=== PATIENT | male | born 1990 | race Caucasian/White ===

== ENCOUNTER 2021-08-18 06:49 | Emergency (ER) | payer OTHER ==
[2021-08-18 06:56] VITALS: BP 146/101; RESP 18; TEMP 97.8
[2021-08-18] MEDS ORDERED: IBUPROFEN 800 MG TAB PO STA (07:01)
--- NOTE | 2021-08-18 07:06 | ED ---
General Adult HPI - General Chief complaint: Extremity Injury, Upper Stated complaint: L wrist injury Time Seen by Provider: 08/18/21 07:00 Source: patient, RN notes reviewed, old records reviewed Mode of arrival: ambulatory Limitations: no limitations - History of Present Illness Initial comments: Well-appearing 31-year-old male presents to the emergency room with complaints of left hand pain. Patient states he slipped on ice last night around 9:30 landing on his let hand. He states since the fall has had increasing pain to his hand with movement of his left thumb and fingers. Denies any wrist pain, elbow or arm pain. No loss of consciousness, no other injuries. -: hour(s) (10) Location: left, upper extremity (hand/wrist) Severity scale (1-10): 8 Quality: aching, constant Consistency: constant Improves with: immobilization Worsens with: movement Associated Symptoms: denies other symptoms Treatments Prior to Arrival: none - Related Data Previous Rx's Medication Instructions Recorded Ibuprofen [Motrin] 800 mg PO Q6HR #30 tab 08/18/21 Allergies Allergy/AdvReac Type Severity Reaction Status Date / Time baires Allergy Swelling Verified 08/18/21 06:56 Review of Systems ROS Statement: Those systems with pertinent positive or pertinent negative responses have been documented in the HPI. ROS Other: All systems not noted in ROS Statement are negative. Past Medical History Past Medical History: No Reported History History of Any Multi-Drug Resistant Organisms: None Reported Past Surgical History: No Surgical Hx Reported Past Psychological History: No Psychological Hx Reported Smoking Status: Current every day smoker Past Alcohol Use History: Daily Past Drug Use History: Marijuana General Exam Limitations: no limitations General appearance: alert, in no apparent distress Head exam: Present: atraumatic, normocephalic, normal inspection Eye exam: Present: normal appearance. Absent: scleral icterus, conjunctival injection, periorbital swelling Neck exam: Present: normal inspection, full ROM. Absent: tenderness, meningi smus Respiratory exam: Present: normal lung sounds bilaterally. Absent: wheezes, rales, rhonchi Cardiovascular Exam: Present: regular rate Left Upper Arm exam: Present: full ROM. Absent: tenderness Elbow exam: Present: full ROM. Absent: tenderness Forearm Wrist exam: Present: full ROM. Absent: tenderness Hand Wrist exam: Present: tenderness, abrasion (Patient states abrasions are from his cat). Absent: full ROM, ecchymosis, deformity, crepitus, dislocation, erythema, amputation Neuro motor exam: Present: wrist extension intact Vascular: Present: normal capillary refill, radial pulse. Absent: vascular compromise Back exam: Absent: tenderness, CVA tenderness (R), CVA tenderness (L) Neurological exam: Present: alert, oriented X3, normal gait Psychiatric exam: Present: normal affect, normal mood Skin exam: Present: warm, dry, normal color. Absent: cyanosis, diaphoretic Course Vital Signs 08/18/21 06:53 Temperature 97.8 F Pulse Rate 94 Respiratory 18 Rate Blood Pressure 146/101 O2 Sat by Pulse 98 Oximetry Medical Decision Making - Medical Decision Making 31-year-old male presents ambulatory with steady gait complaining of left hand pain after a slip and fall on ice last night. X-ray of the left hand and wrist show no acute fracture or dislocation. Joint spaces are within normal limits. Patient was given a prescription for Motrin and directed to take the medication every 8 hours for the next 2-3 days for pain and swelling, use ice and elevate at home. He was given a referral to orthopedics and directed to return to the emergency room with a new or concerning symptoms. Case discussed with Dr. Wu Disposition Clinical Impression: Sprain of hand, left Disposition: HOME SELF-CARE Condition: Good Instructions (If sedation given, give patient instructions): Hand Sprain (ED) Additional Instructions: Take Tylenol and/or Motrin as needed for pain for the next 2-3 days. Use ice for any swelling. Follow-up with orthopedics next week. Prescriptions: Ibuprofen [Motrin] 800 mg PO Q6HR #30 tab Is patient prescribed a controlled substance at d/c from ED?: No Referrals: None,Stated [Primary Care Provider] - 1-2 days Earl Mckeon MD [STAFF PHYSICIAN] - 1-2 days Time of Disposition: 07:37
--- NOTE | 2021-08-18 07:34 | XR ---
EXAMINATION TYPE: XR wrist complete LT, XR hand complete LT DATE OF EXAM: 08/18/2021 CLINICAL HISTORY: Fall injury with pain. TECHNIQUE: Frontal, lateral and oblique images of the left hand and wrist are obtained. 4 view scap hoid view is performed. COMPARISON: None FINDINGS: There is no acute fracture/dislocation evident in the left wrist. The joint spaces in the left wrist appear within normal limits. The overlying soft tissue appears unremarkable. Images of the left hand show no acute fracture or dislocation. Joint spaces are preserved. Overlying soft tissues unremarkable. IMPRESSION: There is no acute fracture or dislocation in the left hand or wrist.
[2021-08-18 08:16] VITALS: PULSE 87
== END 2021-08-18 07:55 | disposition home or self-care (01) ==
LOC: EC 06:49
DX: S63.92XA Sprain of unspecified part of left wrist and hand, initial encounter (principal); F12.90 Cannabis use, unspecified, uncomplicated; F17.200 Nicotine dependence, unspecified, uncomplicated; W00.9XXA Unspecified fall due to ice and snow, initial encounter
CPT/HCPCS: 99283

== ENCOUNTER 2021-08-28 14:01 | Inpatient (IN) | payer OTHER ==
[2021-08-28] MEDS ORDERED: SODIUM CHLORIDE 0.9% 1,000 ML IV STA ×2 (15:29)
[2021-08-28] MEDS ORDERED: LORazepam 2 MG/ML INJ IV STA ×2 (15:30→17:52)
[2021-08-28] MEDS ORDERED: cloNIDine HCL 0.1 MG TAB PO STA (15:30)
--- NOTE | 2021-08-28 15:37 | ED ---
Alcohol HPI - General Chief Complaint: Alcohol Stated Complaint: ETOH Time Seen by Provider: 08/28/21 15:17 Source: patient, family, RN notes reviewed Mode of arrival: ambulatory Limitations: no limitations - History of Present Illness Initial Comments: 31-year-old male with a history of alcoholism drinking up to his much as one fifth of alcohol per day quit drinking 2 days ago because he wants to get off of alcohol he started having shakes started hallucinating started thinking people were talking about a minute conspiring against him. He was given a shot of alcohol last night by a friend to help the symptoms but recurred again today. he's had no fevers chills nausea vomiting sweats he was found have a heart rate of over 160 at home. he was brought in by his landlord who did do the evaluation initially no other current complaints of modifying factors. MD Complaint: alcohol intoxication, alcohol withdrawal, alcohol dependence - Related Data Previous Rx's Medication Instructions Recorded Ibuprofen [Motrin] 800 mg PO Q6HR #30 tab 08/18/21 Allergies Allergy/AdvReac Type Severity Reaction Status Date / Time baires Allergy Swelling Verified 08/28/21 14:27 Review of Systems ROS Statement: Those systems with pertinent positive or pertinent negative responses have been documented in the HPI. ROS Other: All systems not noted in ROS Statement are negative. Past Medical History Past Medical History: No Reported History History of Any Multi-Drug Resistant Organisms: None Reported Past Surgical History: No Surgical Hx Reported Past Psychological History: No Psychological Hx Reported Smoking Status: Current every day smoker Past Alcohol Use History: Daily Past Drug Use History: Marijuana General Exam - General Exam Comments Initial Comments: This is a well up well-nourished awake alert anxious appearing male Limitations: no limitations General appearance: alert, anxious Head exam: Present: atraumatic, normocephalic, normal inspection Eye exam: Present: normal appearance, PERRL, EOMI. Absent: scleral icterus, conjunctival injection, periorbital swelling ENT exam: Present: mucous membranes dry Neck exam: Present: normal inspection, full ROM, other (Surgery per his). Absent: tenderness, meningismus, lymphadenopathy Respiratory exam: Present: normal lung sounds bilaterally. Absent: respiratory distress, wheezes, rales, rhonchi, stridor Cardiovascular Exam: Present: normal rhythm, tachycardia, normal heart sounds. Absent: systolic murmur, diastolic murmur, rubs, gallop, clicks GI/Abdominal exam: Present: soft, normal bowel sounds. Absent: distended, tenderness, guarding, rebound, rigid Extremities exam: Present: normal inspection, full ROM, normal capillary refill. Absent: tenderness, pedal edema, joint swelling, calf tenderness Back exam: Present: normal inspection Neurological exam: Present: alert, oriented X3, CN II-XII intact Psychiatric exam: Present: normal affect, anxious, manic, other (The patient does demonstrate some paranoid features) Skin exam: Present: warm, dry, intact, normal color. Absent: rash Course Vital Signs 08/28/21 14:23 Temperature 98.4 F Pulse Rate 123 H Respiratory 18 Rate Blood Pressure 163/89 O2 Sat by Pulse 98 Oximetry Medical Decision Making - Medical Decision Making I did reevaluate patient several occasions he still demonstrating hallucinations and anxiety as well as some shakes noted. He will be admitted I did discuss case with Aster Orozco who is covering for Dr. Goode. - Lab Data Result diagrams: 08/28/21 15:45 08/28/21 15:45 Lab Results 08/28/21 08/28/21 08/28/21 Range/Units 15:45 15:45 15:45 WBC 6.4 (3.8-10.6) k/uL RBC 4.93 (4.30-5.90) m/uL Hgb 17.8 H (13.0-17.5) gm/dL Hct 50.4 (39.0-53.0) % MCV 102.3 H (80.0-100.0) fL MCH 36.1 H (25.0-35.0) pg MCHC 35.3 (31.0-37.0) g/dL RDW 13.1 (11.5-15.5) % Plt Count 61 L (150-450) k/uL MPV 9.3 Neutrophils % 80 % Lymphocytes % 11 % Monocytes % 7 % Eosinophils % 1 % Basophils % 0 % Neutrophils # 5.1 (1.3-7.7) k/uL Lymphocytes # 0.7 L (1.0-4.8) k/uL Monocytes # 0.4 (0-1.0) k/uL Eosinophils # 0.0 (0-0.7) k/uL Basophils # 0.0 (0-0.2) k/uL Macrocytosis Slight Sodium 134 L (137-145) mmol/L Potassium 3.4 L (3.5-5.1) mmol/L Chloride 93 L (98-107) mmol/L Carbon Dioxide 26 (22-30) mmol/L Anion Gap 15 mmol/L BUN 12 (9-20) mg/dL Creatinine 0.72 (0.66-1.25) mg/dL Est GFR (CKD-EPI)AfAm >90 (>60 ml/min/1.73 sqM) Est GFR (CKD-EPI)NonAf >90 (>60 ml/min/1.73 sqM) Glucose 98 (74-99) mg/dL Calcium 9.8 (8.4-10.2) mg/dL Magnesium 0.9 L* (1.6-2.3) mg/dL Total Bilirubin 4.1 H (0.2-1.3) mg/dL AST 255 H (17-59) U/L ALT 164 H (4-49) U/L Alkaline Phosphatase 82 (38-126) U/L Creatine Kinase 358 H (55-170) U/L Troponin I <0.012 (0.000-0.034) ng/mL Total Protein 8.9 H (6.3-8.2) g/dL Albumin 5.3 H (3.5-5.0) g/dL Lipase 68 (23-300) U/L Serum Alcohol <10 mg/dL - EKG Data -: EKG Interpreted by Me EKG shows normal: sinus rhythm EKG Comments: Sinus rhythm 89. Interval 144 QRS duration 110 daily since QTC 333/379 including right bundle-branch block nonspecific anterior configuration - Radiology Data Radiology results: report reviewed (Imaging reviewed no acute findings.), image reviewed Disposition Clinical Impression: Alcohol withdrawal delirium, Alcohol withdrawal syndrome, Hypomagnesemia, Hypokalemia Disposition: ADMITTED IP TO THIS [facility] Condition: Fair Referrals: None,Stated [Primary Care Provider] - 1-2 days
[2021-08-28 16:13] LABS: Basophils % (A) 0 %; Eosinophils % (A) 1 %; HCT 50.4 % (39.0-53.0); HGB 17.8 gm/dL (13.0-17.5); Lymphocytes # (A) 0.7 k/uL (1.0-4.8); Lymphocytes % (A) 11 %; MCH 36.1 pg (25.0-35.0); MCHC 35.3 g/dL (31.0-37.0); MCV 102.3 fL (80.0-100.0); Macrocytosis Slight; Mean Platelet Volume 9.3; Monocytes # (A) 0.4 k/uL (0-1.0); Monocytes % (A) 7 %; Neutrophils # (A) 5.1 k/uL (1.3-7.7); Neutrophils % (A) 80 %; RBC 4.93 m/uL (4.30-5.90); RDW 13.1 % (11.5-15.5); WBC 6.4 k/uL (3.8-10.6)
[2021-08-28 16:22] LABS: ALT 164 U/L (4-49); AST 255 U/L (17-59); African American GFR (CKD) >90 (>60 ml/min/1.73 sqM); Albumin 5.3 g/dL (3.5-5.0); Alcohol <10 mg/dL; Alkaline Phosphatase 82 U/L (38-126); Anion Gap 15 mmol/L; Blood Urea Nitrogen 12 mg/dL (9-20); Calcium 9.8 mg/dL (8.4-10.2); Carbon Dioxide 26 mmol/L (22-30); Chloride 93 mmol/L (98-107); Creatine Kinase 358 U/L (55-170); Glucose 98 mg/dL (74-99); Lipase 68 U/L (23-300); Non-African American GFR(CKD) >90 (>60 ml/min/1.73 sqM); Potassium 3.4 mmol/L (3.5-5.1); Sodium 134 mmol/L (137-145); Total Bilirubin 4.1 mg/dL (0.2-1.3); Total Protein 8.9 g/dL (6.3-8.2)
[2021-08-28 16:37] LABS: Magnesium 0.9 mg/dL (1.6-2.3)
[2021-08-28 16:42] LABS: Platelet Count 61 k/uL (150-450)
--- NOTE | 2021-08-28 17:26 | XR ---
EXAMINATION TYPE: XR chest 2V DATE OF EXAM: 08/28/2021 COMPARISON: 02/27/2016 HISTORY: 31 years Male. STUDY INDICATION GIVEN: Tachycardia . TECHNIQUE: Frontal and lateral chest radiographs. IMPRESSION: No focal airspace disease, pneumothorax or pleural effusion. There is a retrocardiac lucency which was seen on the prior study which could be artifactual versus a gastroesophageal hiatal hernia. The cardiomediastinal silhouette is normal in appearance. No acute osseous abnormalities seen.
[2021-08-28] MEDS ORDERED: diphenhydrAMINE 50 MG/ML 1 ML VIAL IVP STA (17:55)
[2021-08-28] MEDS ORDERED: THIAMINE 100 MG/ML 2 ML VIAL IM STA (18:02)
[2021-08-28] MEDS ORDERED: LORazepam 2 MG/ML INJ IV PRN (18:02)
[2021-08-28] MEDS ORDERED: NALOXONE 0.4 MG/ML 1 ML VIAL IV PRN (18:02)
[2021-08-28] MEDS ORDERED: POTASSIUM CHLORIDE ER 20 MEQ TAB.ER PO STA (18:04)
[2021-08-28] MEDS: MAGNESIUM SULFATE-D5W PMX 1 GM in DEXTROSE/WATER 1 100ML.BAG IVPB SCH ×2 (19:25→23:58)
[2021-08-28] MEDS: LORazepam 2 MG/ML INJ IV PRN ×2 (19:28→21:05)
[2021-08-28] MEDS: THIAMINE 100 MG TAB PO SCH ×2 (19:33→19:34)
[2021-08-28] MEDS ORDERED: HALOPERIDOL LACTATE 5 MG/ML 1 ML VIAL IM PRN (21:43)
[2021-08-28] MEDS ORDERED: LORazepam 2 MG/ML INJ IM STA (22:17)
[2021-08-28] MEDS ORDERED: LORazepam 2 MG/ML INJ ONE (22:19)
[2021-08-28] MEDS: DEXMEDETOMIDINE/0.9% NACL(PMX) 400 MCG in EMPTY BAG 1 BAG IV SCH (23:30)
[2021-08-29] MEDS: LORazepam 2 MG/ML INJ IV PRN ×5 (00:23→14:21)
--- NOTE | 2021-08-29 03:07 | P.EN ---
A- team: Indication: Delirium tremens Arrived on Scene to find: Severely agitated, in 4 point restraints Vital signs reviewed Patient seen and examined at bedside. The patient was very agitated with CIWA > 30. He was not directable. General: Very agitated, in 4 point restraints, [appears at stated age] Derm: [warm], [dry] Head: [atraumatic], [normocephalic], [symmetric] Eyes: [EOMI], [no lid lag], [anicteric sclera] Mouth: [no lip lesion], [mucus membranes dry] Cardiovascular: Unable to assess, patient combative Lungs: Unable to assess, patient combative Abdominal: Unable to assess Ext: Moving all extremities Neuro: [no gross focal neuro deficits] Psych: Tremulous and agitated, speaking incoherently Assessment: Delirium tremens Plan: Ativan 4 mg IM administered that much relief The case was discussed with head piece assembler who accepted the patient for Ativan infusion Continue with delirium tremens management as per the primary team Disposition: Transferred to ICU Notified: Primary team notified by RN A Total of 35 minutes of critical care time was spent on the complex care of this patient.
[2021-08-29] MEDS: DEXMEDETOMIDINE/0.9% NACL(PMX) 400 MCG in EMPTY BAG 1 BAG IV SCH ×4 (04:21→19:35)
[2021-08-29 05:43] LABS: Basophils % (A) 0 %; Eosinophils # (A) 0.1 k/uL (0-0.7); Eosinophils % (A) 1 %; HCT 46.7 % (39.0-53.0); HGB 15.7 gm/dL (13.0-17.5); Lymphocytes # (A) 0.8 k/uL (1.0-4.8); Lymphocytes % (A) 10 %; MCH 35.8 pg (25.0-35.0); MCHC 33.6 g/dL (31.0-37.0); MCV 106.5 fL (80.0-100.0); Macrocytosis Moderate; Mean Platelet Volume 10.2; Monocytes # (A) 0.4 k/uL (0-1.0); Monocytes % (A) 5 %; Neutrophils % (A) 82 %; RBC 4.39 m/uL (4.30-5.90); RDW 13.2 % (11.5-15.5); WBC 7.3 k/uL (3.8-10.6)
[2021-08-29 05:56] LABS: Platelet Count 50 k/uL (150-450)
[2021-08-29 06:07] LABS: African American GFR (CKD) >90 (>60 ml/min/1.73 sqM); Anion Gap 17 mmol/L; Blood Urea Nitrogen 15 mg/dL (9-20); Calcium 8.5 mg/dL (8.4-10.2); Carbon Dioxide 17 mmol/L (22-30); Chloride 100 mmol/L (98-107); Glucose 77 mg/dL (74-99); Non-African American GFR(CKD) >90 (>60 ml/min/1.73 sqM); Potassium 3.7 mmol/L (3.5-5.1); Sodium 134 mmol/L (137-145)
[2021-08-29] MEDS ORDERED: Potassium Replacement Protocol 1 EACH MISC MISCELLANE PRN (06:29)
[2021-08-29] MEDS: POTASSIUM CHLORIDE 10 MEQ in WATER FOR INJECTION 1 100ML.BAG IVPB SCH ×2 (06:46→08:04)
[2021-08-29] MEDS: THIAMINE 100 MG TAB PO SCH ×2 (08:05→16:40)
--- NOTE | 2021-08-29 09:05 | P.CNPUL ---
History of Present Illness Consult date: 08/29/21 Chief complaint: Delerium History of present illness: 31-year-old alcoholic male patient, drinks a fifth of alcohol on a daily basis and he quit drinking approximately 2 days ago prior to him coming into the hospital. The patient developed shakes, agitation, confusion, hallucination and he hasn't delusions where he thought the people around him were conspiring against him. He was given a shot of alcohol by a friend to help him with the symptoms but the symptoms recurred. Ultimately he came into the emergency department. No fever. No chills. No sweats. No nausea. No vomiting. He was brought into the emergency by his landlord. At the time of his arrival, he was hemodynamically stable, afebrile, he was in sinus tachycardia, slightly hypertensive, white count of 6.4 with a hemoglobin of 17.8 and the patient had a platelet count of 61, sodium is at 134, BUN is at 12 with a creatinine of 0.7 and a potassium level of 3.4 and a glucose of 98. LFTs were abnormal consistent with acute alcoholic hepatitis with an AST of 255, ALT of 164, bilirubin of 4.1, his CPK was at 358 slightly elevated with a negative troponin. His alcohol level was less than 10. Amylase and lipase were within normal limits. His magnesium level was low at 0.9 to the placements currently up to 2. Note that overnight, the patient became severely agitated. He was given Ativan and he was very difficult to control. Based on that, the patient got chest to the ICU where he was started on Precedex drip. Morning, he is confused, no agitation. He is still on Precedex at 1 mcg/kg per minute. Overall, he received a total of 5 mg of Ativan and 2 mg of Haldol and this was documented in the medical record. Review of Systems Constitutional: Reports as per HPI, Reports daytime sleepiness, Reports fatigue, Reports lethargy, Reports poor appetite, Reports weakness Eyes: denies as per HPI, denies blurred vision, denies bulging eye, denies decreased vision, denies diplopia, denies discharge, denies dry eye, denies irritation, denies itching, denies pain, denies photophobia, denies loss of peripheral vision, denies loss of vision, denies tunnel vision/blind spots Ears: deny: decreased hearing, ear discharge, earache, tinnitus Ears, nose, mouth and throat: Reports as per HPI Breasts: absent: as per HPI, gynecomastia Cardiovascular: Reports as per HPI Respiratory: Reports as per HPI Gastrointestinal: Reports as per HPI Genitourinary: Reports as per HPI Musculoskeletal: Reports as per HPI Musculoskeletal: absent: ankle pain, ankle stiffness, ankle swelling, as per HPI, elbow pain, elbow stiffness, elbow swelling, foot pain, foot stiffness, foot swelling, hand pain, hand stiffness, hand swelling, hip pain, hip stiffness, hip swelling, knee pain, knee stiffness, knee swelling, shoulder pain, shoulder stiffness, shoulder swelling, wrist pain, wrist stiffness, wrist swelling Integumentary: Reports as per HPI Neurological: Reports confusion Psychiatric: Reports as per HPI Endocrine: Reports as per HPI Hematologic/Lymphatic: Reports as per HPI Allergic/Immunologic: Reports as per HPI Past Medical History Past Medical History: No Reported History History of Any Multi-Drug Resistant Organisms: None Reported Past Surgical History: No Surgical Hx Reported Past Psychological History: No Psychological Hx Reported Smoking Status: Unknown if ever smoked Past Alcohol Use History: Daily Past Drug Use History: Marijuana Medications and Allergies Home Medications Medication Instructions Recorded Confirmed Type Ibuprofen [Motrin] 800 mg PO Q6HR PRN 08/28/21 08/28/21 History Allergies Allergy/AdvReac Type Severity Reaction Status Date / Time baires Allergy Swelling Verified 08/28/21 18:19 Physical Exam Vitals: Vital Signs Temp Pulse Pulse Pulse Pulse Resp BP 08/29/21 08:30 74 17 111/84 08/29/21 08:00 98 F 75 14 114/78 08/29/21 07:30 76 16 101/74 08/29/21 07:00 79 15 117/77 08/29/21 06:30 80 15 111/75 08/29/21 06:00 81 16 117/73 08/29/21 05:30 82 15 107/73 08/29/21 05:00 83 16 111/70 08/29/21 04:30 97.8 F 85 84 87 18 113/72 08/29/21 04:00 98.0 F 85 18 116/74 08/29/21 03:30 86 19 114/73 08/29/21 03:00 89 21 110/77 08/29/21 02:30 90 19 125/76 08/29/21 02:00 95 21 111/66 08/29/21 01:30 98.2 F 97 89 91 23 123/80 08/29/21 01:00 105 H 28 H 130/81 08/29/21 00:30 116 H 49 H 125/82 08/29/21 00:16 114 H 28 H 131/87 08/29/21 00:15 114 H 28 H 124/87 08/29/21 00:00 120 H 29 H 123/74 08/28/21 23:45 130 H 32 H 123/74 08/28/21 23:30 135 H 59 H 123/74 08/28/21 23:01 08/28/21 20:35 98.8 F 104 H 18 08/28/21 18:32 105 H 20 141/89 08/28/21 14:23 98.4 F 123 H 18 163/89 BP Pulse Ox 08/29/21 08:30 99 08/29/21 08:00 98 08/29/21 07:30 98 08/29/21 07:00 98 08/29/21 06:30 98 08/29/21 06:00 97 08/29/21 05:30 98 08/29/21 05:00 97 08/29/21 04:30 111/70 97 08/29/21 04:00 97 08/29/21 03:30 97 08/29/21 03:00 97 08/29/21 02:30 97 08/29/21 02:00 97 08/29/21 01:30 128/65 96 08/29/21 01:00 98 08/29/21 00:30 08/29/21 00:16 08/29/21 00:15 08/29/21 00:00 08/28/21 23:45 96 08/28/21 23:30 93 L 08/28/21 23:01 94 L 08/28/21 20:35 137/81 97 08/28/21 18:32 97 08/28/21 14:23 98 Intake and Output 08/28/21 08/29/21 08/29/21 22:59 06:59 14:59 Intake Total 440.000 130 Balance 440.000 130 Intake: IV 220 30 Sodium Chloride 0.9% 1, 220 30 000 ml @ 130 mls/hr IV . Q7H42M [facility] Rx#:[id number] Intake, IV Titration 220.000 100 Amount Dexmedetomidine/0.9% NaCl 100.000 100 (Pmx) 400 mcg In Empty Bag 1 bag @ 0.2 MCG/KG/HR 5.67 mls/hr IV .[id number] [facility] Rx#:[id number] Sodium Chloride 0.9% 1, 120 000 ml @ 130 mls/hr IV . Q7H42M [facility] Rx#:[id number] Other: Weight 113.398 kg The patient appeared well nourished and normally developed. Vital signs as docum ented. Head exam is unremarkable. No scleral icterus or corneal arcus noted. Neck is without jugular venous distension, thyromegaly, or carotid bruits. Carotid upstrokes are brisk bilaterally. Lungs are clear to auscultation and percussion. Cardiac exam reveals the PMI to be normally sized and situated. Rhythm is regular. First and second heart sounds normal. No murmurs, rubs or gallops. Abdominal exam reveals normal bowel sounds, no masses, no organomegaly and no aortic enlargement. Extremities are nonedematous and both femoral and pedal pulses are normal. neurologically, the patient has no palpable neurological deficit. The patient still has ongoing shakes and confusion and he is alert and oriented 1. Nevertheless, no agitation. Pupils are equal reactive to light. No focal neurological deficits.Examination of the skin revealed no evidence of significant rashes, suspicious appearing nevi or other concerning lesions. Results - Laboratory Findings CBC and BMP: 08/29/21 04:48 08/29/21 04:48 Abnormal lab findings: Abnormal Labs 08/28/21 08/28/21 08/29/21 15:45 15:45 04:48 Hgb 17.8 H MCV 102.3 H 106.5 H MCH 36.1 H 35.8 H Plt Count 61 L 50 L Lymphocytes # 0.7 L 0.8 L Sodium 134 L Potassium 3.4 L Chloride 93 L Carbon Dioxide Magnesium 0.9 L* Total Bilirubin 4.1 H AST 255 H ALT 164 H Creatine Kinase 358 H Total Protein 8.9 H Albumin 5.3 H 08/29/21 04:48 Hgb MCV MCH Plt Count Lymphocytes # Sodium 134 L Potassium Chloride Carbon Dioxide 17 L Magnesium Total Bilirubin AST ALT Creatine Kinase Total Protein Albumin - Diagnostic Findings Chest x-ray: image reviewed Assessment and Plan Plan: 1. Delirium Tremors secondary to alcohol withdrawal with significant agitation currently on Precedex drip with adequate control of symptoms of delirium tremens 2 confusion/agitation/hallucinations/delusions all secondary to above 3 alcoholism 4 electrolytes disturbance secondary to alcoholism including hypo-magnesium and hypokalemia 5 acute alcoholic hepatitis 6 chronic thrombocytopenia related to a dose of 7 hyperbilirubinemia secondary to above Plan Keep the patient intensive care unit Aspiration precautions Keep the patient on Precedex drip and titrate the dose based on his symptoms of delirium tremens This morning the patient is more arousable and is communicating. He is confused and lethargic. No focal neurological deficits. Replace electrolytes Monitor LFTs History was a normal saline at the rate of 100 mL an hour in addition to 20 mg of potassium chloride replacement along with multivitamins Replace the patient with thiamine and folate Lovenox 40 mg subcu for DVT prophylaxis We'll continue to follow
[2021-08-29] MEDS ORDERED: SODIUM CHLORIDE 0.9% 1,000 ML with POTASSIUM CHLORIDE 20 MEQ IV SCH ×2 (09:30)
--- NOTE | 2021-08-29 13:02 | P.HPIM ---
History of Present Illness H&P Date: 08/29/21 Chief Complaint: Hallucinations Patient is a 31-year-old male with a known history of alcohol abuse and marijuana use presents to ER due to alcohol intoxication. Patient does drink 1/5 of alcohol per day and quit 2 days ago since he decided to get off of alcohol. He started having shakes and hallucinating and thinking that people are talking about him and conspiring against him. He was brought in by his landlord to the ER. Otherwise patient has not had any fever or chills. No nausea or vomiting. Patient was tachycardic with heart rate 123 and up to 135 on admission. Blood pressure is also elevated 163/89 and pulse ox 98% on room air. Chest x-ray showed there is no focal airspace disease pneumothorax or pleural effusion. EKG showed sinus rhythm with marked sinus arrhythmia. Patient has been contacted monitor for alcohol withdrawal symptoms and delirium. Laboratory showed sodium 134 potassium 3.4 chloride 93 BUN: Creatinine 0.72 magnesium 0.9 total bilirubin level is 4.1 AST 245 ALT 164 and alk phos 82 and a CK 354 8 and lipase level is 68 and serum alcohol level is less than 10. Overnight patient became very agitated requiring restraint x4 and was transferred to MICU due to delirium tremors. Patient was given Ativan and Haldol. Patient was started on Precedex drip in the MICU. Review of Systems Review of systems could not be obtained from the patient. Past Medical History Past Medical History: No Reported History History of Any Multi-Drug Resistant Organisms: None Reported Past Surgical History: No Surgical Hx Reported Past Psychological History: No Psychological Hx Reported Smoking Status: Unknown if ever smoked Past Alcohol Use History: Daily Past Drug Use History: Marijuana - Past Family History Mother History Unknown: Yes Father History Unknown: Yes Medications and Allergies Home Medications Medication Instructions Recorded Confirmed Type Ibuprofen [Motrin] 800 mg PO Q6HR PRN 08/28/21 08/28/21 History Allergies Allergy/AdvReac Type Severity Reaction Status Date / Time baires Allergy Swelling Verified 08/28/21 18:19 Physical Exam Vitals: Vital Signs Temp Pulse Pulse Pulse Pulse Resp BP 08/29/21 12:00 98 F 78 15 108/86 08/29/21 11:30 80 16 117/83 08/29/21 11:00 77 15 119/84 08/29/21 10:30 75 16 122/96 08/29/21 10:00 78 17 114/94 08/29/21 09:30 75 16 124/92 08/29/21 09:00 73 20 123/89 08/29/21 08:30 74 17 111/84 08/29/21 08:00 98 F 75 14 114/78 08/29/21 07:30 76 16 101/74 08/29/21 07:00 79 15 117/77 08/29/21 06:30 80 15 111/75 08/29/21 06:00 81 16 117/73 08/29/21 05:30 82 15 107/73 08/29/21 05:00 83 16 111/70 08/29/21 04:30 97.8 F 85 84 87 18 113/72 08/29/21 04:00 98.0 F 85 18 116/74 08/29/21 03:30 86 19 114/73 08/29/21 03:00 89 21 110/77 08/29/21 02:30 90 19 125/76 08/29/21 02:00 95 21 111/66 08/29/21 01:30 98.2 F 97 89 91 23 123/80 08/29/21 01:00 105 H 28 H 130/81 08/29/21 00:30 116 H 49 H 125/82 08/29/21 00:16 114 H 28 H 131/87 08/29/21 00:15 114 H 28 H 124/87 08/29/21 00:00 120 H 29 H 123/74 08/28/21 23:45 130 H 32 H 123/74 08/28/21 23:30 135 H 59 H 123/74 08/28/21 23:01 08/28/21 20:35 98.8 F 104 H 18 08/28/21 18:32 105 H 20 141/89 08/28/21 14:23 98.4 F 123 H 18 163/89 BP Pulse Ox 08/29/21 12:00 98 08/29/21 11:30 98 08/29/21 11:00 97 08/29/21 10:30 97 08/29/21 10:00 98 08/29/21 09:30 98 08/29/21 09:00 98 08/29/21 08:30 99 08/29/21 08:00 98 08/29/21 07:30 98 08/29/21 07:00 98 08/29/21 06:30 98 08/29/21 06:00 97 08/29/21 05:30 98 08/29/21 05:00 97 08/29/21 04:30 111/70 97 08/29/21 04:00 97 08/29/21 03:30 97 08/29/21 03:00 97 08/29/21 02:30 97 08/29/21 02:00 97 08/29/21 01:30 128/65 96 08/29/21 01:00 98 08/29/21 00:30 08/29/21 00:16 08/29/21 00:15 08/29/21 00:00 08/28/21 23:45 96 08/28/21 23:30 93 L 08/28/21 23:01 94 L 08/28/21 20:35 137/81 97 08/28/21 18:32 97 08/28/21 14:23 98 Intake and Output 08/28/21 08/29/21 08/29/21 22:59 06:59 14:59 Intake Total 440.000 350 Balance 440.000 350 Intake: IV 220 150 Sodium Chloride 0.9% 1, 220 150 000 ml @ 130 mls/hr IV . Q7H42M [facility] Rx#:[id number] Intake, IV Titration 220.000 200 Amount Dexmedetomidine/0.9% NaCl 100.000 200 (Pmx) 400 mcg In Empty Bag 1 bag @ 0.2 MCG/KG/HR 5.67 mls/hr IV .[id number] [facility] Rx#:[id number] Sodium Chloride 0.9% 1, 120 000 ml @ 130 mls/hr IV . Q7H42M [facility] Rx#:[id number] Other: # Voids 1 Weight 113.398 kg PHYSICAL EXAMINATION: Patient is lying in the bed . Currently sedated. HEENT: Normocephalic. Neck is supple. Pupils reactive. Nostrils clear. Oral cavity is moist. Neck reveals no JVD, carotid bruits, or thyromegaly. CHEST EXAMINATION: Trachea is central. Symmetrical expansion. Lung rodriguez clear to auscultation and percussion. CARDIAC: Normal S1, S2 with no gallops. No murmurs ABDOMEN: Soft. Bowel sounds normal. No organomegaly. No abdominal bruits. Extremities: reveal no edema. No clubbing or cyanosis Neurologically sedated. No gross focal deficits noted Skin: No rash or skin lesions. Psychiatric: Could not be assessed at this time. Musculoskeletal: No joint swelling or deformity. Results CBC & Chem 7: 08/29/21 04:48 08/29/21 04:48 Labs: Abnormal Lab Results - Last 24 Hours (Table) 08/28/21 08/28/21 08/29/21 Range/Units 15:45 15:45 04:48 Hgb 17.8 H (13.0-17.5) gm/dL MCV 102.3 H 106.5 H (80.0-100.0) fL MCH 36.1 H 35.8 H (25.0-35.0) pg Plt Count 61 L 50 L (150-450) k/uL Lymphocytes # 0.7 L 0.8 L (1.0-4.8) k/uL Sodium 134 L (137-145) mmol/L Potassium 3.4 L (3.5-5.1) mmol/L Chloride 93 L (98-107) mmol/L Carbon Dioxide (22-30) mmol/L Magnesium 0.9 L* (1.6-2.3) mg/dL Total Bilirubin 4.1 H (0.2-1.3) mg/dL AST 255 H (17-59) U/L ALT 164 H (4-49) U/L Creatine Kinase 358 H (55-170) U/L Total Protein 8.9 H (6.3-8.2) g/dL Albumin 5.3 H (3.5-5.0) g/dL 08/29/21 Range/Units 04:48 Hgb (13.0-17.5) gm/dL MCV (80.0-100.0) fL MCH (25.0-35.0) pg Plt Count (150-450) k/uL Lymphocytes # (1.0-4.8) k/uL Sodium 134 L (137-145) mmol/L Potassium (3.5-5.1) mmol/L Chloride (98-107) mmol/L Carbon Dioxide 17 L (22-30) mmol/L Magnesium (1.6-2.3) mg/dL Total Bilirubin (0.2-1.3) mg/dL AST (17-59) U/L ALT (4-49) U/L Creatine Kinase (55-170) U/L Total Protein (6.3-8.2) g/dL Albumin (3.5-5.0) g/dL Thrombosis Risk Factor Assmnt - DVT/VTE Prophylaxis DVT/VTE Prophylaxis: Pharmacologic Prophylaxis ordered Assessment and Plan Assessment: Acute delirium tremens. Patient was transferred to MICU and started on Precedex drip. Severe alcohol abuse was one-point daily. Quit 2 days ago. Severe hypokalemia and hypomagnesemia. Replaced. Alcoholic hepatitis with elevated LFTs Hyperbilirubinemia secondary to alcoholic hepatitis Chronic thrombocytopenia and macrocytosis related to alcohol abuse Hypovolemic hyponatremia Mild rhabdomyolysis CK level 358 DVT prophylaxis Plan: Patient will be continued on IV fluids, thiamine and multivitamins and continue with Ativan as needed and CIWA protocol. Patient was started on Precedex drip and continue to monitor the patient in the MICU. Critical care team is on board. Follow-up electrolytes and repeat CBC and CMP tomorrow. Time with Patient: Greater than 30
[2021-08-30] MEDS: DEXMEDETOMIDINE/0.9% NACL(PMX) 400 MCG in EMPTY BAG 1 BAG IV SCH ×2 (01:35→07:59)
[2021-08-30 07:31] LABS: Basophils # (A) 0.1 k/uL (0-0.2); Basophils % (A) 1 %; Eosinophils # (A) 0.2 k/uL (0-0.7); Eosinophils % (A) 2 %; HCT 48.4 % (39.0-53.0); Lymphocytes # (A) 1.1 k/uL (1.0-4.8); Lymphocytes % (A) 11 %; MCH 35.9 pg (25.0-35.0); MCHC 33.2 g/dL (31.0-37.0); MCV 108.4 fL (80.0-100.0); Macrocytosis Moderate; Mean Platelet Volume 10.3; Monocytes # (A) 0.5 k/uL (0-1.0); Monocytes % (A) 5 %; Neutrophils % (A) 80 %; RBC 4.46 m/uL (4.30-5.90); RDW 12.4 % (11.5-15.5)
[2021-08-30 07:34] LABS: Platelet Count 54 k/uL (150-450)
[2021-08-30 07:45] LABS: ALT 123 U/L (4-49); AST 314 U/L (17-59); African American GFR (CKD) >90 (>60 ml/min/1.73 sqM); Albumin 3.8 g/dL (3.5-5.0); Alkaline Phosphatase 65 U/L (38-126); Anion Gap 9 mmol/L; Blood Urea Nitrogen 12 mg/dL (9-20); Calcium 8.3 mg/dL (8.4-10.2); Carbon Dioxide 14 mmol/L (22-30); Chloride 108 mmol/L (98-107); Glucose 85 mg/dL (74-99); Non-African American GFR(CKD) >90 (>60 ml/min/1.73 sqM); Sodium 131 mmol/L (137-145); Total Bilirubin 2.6 mg/dL (0.2-1.3); Total Protein 6.9 g/dL (6.3-8.2)
[2021-08-30 08:18] LABS: Potassium 4.6 mmol/L (3.5-5.1)
[2021-08-30] MEDS ORDERED: ENOXAPARIN 40 MG/0.4 ML SYRINGE SQ SCH (09:00)
[2021-08-30] MEDS ORDERED: FOLIC ACID 1 MG TAB PO SCH (09:00)
[2021-08-30] MEDS ORDERED: SODIUM BICARB 8.4% 50 ML SYR (1 MEQ/ML) IV STA (09:24)
[2021-08-30] MEDS ORDERED: DEXTROSE 5% IN WATER 1,000 ML IV SCH (09:30)
[2021-08-30] MEDS: THIAMINE 100 MG TAB PO SCH ×2 (09:45→17:45)
[2021-08-30] MEDS ORDERED: DEXTROSE 5% IN WATER 1,000 ML with SODIUM BICARB (1 MEQ/ML) 150 ML IV SCH (10:53)
[2021-08-30 12:08] VITALS: TEMP 98
--- NOTE | 2021-08-30 13:11 | P.PN ---
Subjective Progress Note Date: 08/30/21 31-year-old alcoholic male patient, drinks a fifth of alcohol on a daily basis and he quit drinking approximately 2 days ago prior to him coming into the hospital. The patient developed shakes, agitation, confusion, hallucination and he hasn't delusions where he thought the people around him were conspiring against him. He was given a shot of alcohol by a friend to help him with the symptoms but the symptoms recurred. Ultimately he came into the emergency department. No fever. No chills. No sweats. No nausea. No vomiting. He was brought into the emergency by his landlord. At the time of his arrival, he was hemodynamically stable, afebrile, he was in sinus tachycardia, slightly hypertensive, white count of 6.4 with a hemoglobin of 17.8 and the patient had a platelet count of 61, sodium is at 134, BUN is at 12 with a creatinine of 0.7 and a potassium level of 3.4 and a glucose of 98. LFTs were abnormal consistent with acute alcoholic hepatitis with an AST of 255, ALT of 164, bilirubin of 4.1, his CPK was at 358 slightly elevated with a negative troponin. His alcohol level was less than 10. Amylase and lipase were within normal limits. His magnesium level was low at 0.9 to the placements currently up to 2. Note that overnight, the patient became severely agitated. He was given Ativan and he was very difficult to control. Based on that, the patient got chest to the ICU where he was started on Precedex drip. Morning, he is confused, no agitation. He is still on Precedex at 1 mcg/kg per minute. Overall, he received a total of 5 mg of Ativan and 2 mg of Haldol and this was documented in the medical record. On today's evaluation of 08/22/2021, the patient is doing extremely well. No specific complaints. No confusion. No tremors. No agitation. No restlessn ess. No seizure activity. He is able to tolerate his diet and the patient for breakfast this morning. He is still on Precedex which will be gradually weaned off. Precedex is running at 0.8 mcg/kg per minute. His sodium level is at 131. BNP is at 12 with a creatinine of 0.6. The patient's serum bicarbonate 14 and the bicarb deficit will be also replaced. Potassium is at 4.6. White seconds a, him a 16 and a platelet count of 54. No other significant events overnight otherwise. The patient did not require any Ativan or Haldol since his arrival to the intensive care units. Objective - Vital Signs Vital signs: Vital Signs Temp 98 F 08/30/21 12:00 Pulse 75 08/30/21 12:00 Resp 25 H 08/30/21 12:00 BP 106/73 08/30/21 12:00 Pulse Ox 97 08/30/21 12:00 Intake & Output 08/29/21 08/30/21 08/30/21 18:59 06:59 18:59 Intake Total 1050 1910 1852.086 Output Total 600 665 550 Balance 450 1245 1302.086 Intake: IV 750 1100 550 0.9% NaCl with KCl 20 Meq 700 100 /l 1,000 ml @ 100 mls/hr IV .BY DURATION [facility] Rx#: [id number] Dextrose 5% in Water 1, 150 000 ml @ 75 mls/hr IV . [id number] [facility] with Sodium Bicarb (1 Meq/ml) 150 ml Rx#:[id number] Mvi, Adult No.4 with Vit 600 400 K 10 ml Thiamine 100 mg Folic Acid 1 mg In 0.9% NaCl with KCl 20 Meq/l 1, 000 ml @ 100 mls/hr IV . BY DURATION [facility] Rx#: [id number] NACL with 20KCL 300 Sodium Chloride 0.9% 1, 150 000 ml @ 130 mls/hr IV . Q7H42M [facility] Rx#:[id number] Intake, IV Titration 530 510 7268.086 Amount 0.9% NaCl with KCl 20 Meq 940 /l 1,000 ml @ 100 mls/hr IV .BY DURATION [facility] Rx#: [id number] Dexmedetomidine/0.9% NaCl 300 200 62.086 (Pmx) 400 mcg In Empty Bag 1 bag @ 0.2 MCG/KG/HR 5.67 mls/hr IV .[id number] [facility] Rx#:[id number] Sodium Chloride 0.9% 1, 130 000 ml @ 130 mls/hr IV . Q7H42M [facility] Rx#:[id number] Oral 480 300 Output: Urine 600 665 550 Other: Voiding Method Urinal Urinal # Voids 1 1 # Bowel Movements 1 - Exam The patient appeared well nourished and normally developed. Vital signs as documented. Head exam is unremarkable. No scleral icterus or corneal arcus noted. Neck is without jugular venous distension, thyromegaly, or carotid bruits. Carotid upstrokes are brisk bilaterally. Lungs are clear to auscultation and percussion. Cardiac exam reveals the PMI to be normally sized and situated. Rhythm is regular. First and second heart sounds normal. No murmurs, rubs or gallops. Abdominal exam reveals normal bowel sounds, no masses, no organomegaly and no aortic enlargement. Extremities are nonedematous and both femoral and pedal pulses are normal. neurologically, the patient has no palpable neur ological deficit. The patient still has ongoing shakes and confusion and he is alert and oriented 1. Nevertheless, no agitation. Pupils are equal reactive to light. No focal neurological deficits.Examination of the skin revealed no evidence of significant rashes, suspicious appearing nevi or other concerning lesions. - Labs CBC & Chem 7: 08/30/21 06:47 08/30/21 06:47 Labs: Abnormal Lab Results - Last 24 Hours (Table) 08/30/21 08/30/21 Range/Units 06:47 06:47 MCV 108.4 H (80.0-100.0) fL MCH 35.9 H (25.0-35.0) pg Plt Count 54 L (150-450) k/uL Neutrophils # 8.0 H (1.3-7.7) k/uL Sodium 131 L (137-145) mmol/L Chloride 108 H (98-107) mmol/L Carbon Dioxide 14 L (22-30) mmol/L Creatinine 0.60 L (0.66-1.25) mg/dL Calcium 8.3 L (8.4-10.2) mg/dL Total Bilirubin 2.6 H (0.2-1.3) mg/dL AST 314 H (17-59) U/L ALT 123 H (4-49) U/L Assessment and Plan Plan: 1. Delirium Tremors secondary to alcohol withdrawal with significant agitation currently on Precedex drip with adequate control of symptoms of delirium tremens, clinically stable. No confusion. No agitation. We'll gradually wean off the Precedex. 2 confusion/agitation/hallucinations/delusions all secondary to above, improved 3 alcoholism 4 electrolytes disturbance secondary to alcoholism including hypo-magnesium and hypokalemia 5 acute alcoholic hepatitis 6 chronic thrombocytopenia related to chronic liver disease in the patient's platelet counts is stable for now 7 hyperbilirubinemia secondary to above 8 non-anion gap metabolic acidosis Plan Keep the patient intensive care unit Wean off Precedex Monitor electrolytes Replace the bicarb deficit and the patient was started on a bicarb infusion Monitor LFTs Replace the patient with thiamine and folate Lovenox 40 mg subcu for DVT prophylaxis We'll continue to follow
[2021-08-30 18:05] VITALS: BP 123/74; PULSE 101; RESP 18
--- NOTE | 2021-08-30 22:19 | P.PN ---
Subjective Progress Note Date: 08/30/21 Patient is a 31-year-old male with a known history of alcohol abuse and marijuana use presents to ER due to alcohol intoxication. Patient does drink 1/5 of alcohol per day and quit 2 days ago since he decided to get off of alcohol. He started having shakes and hallucinating and thinking that people are talking about him and conspiring against him. He was brought in by his landlord to the ER. Otherwise patient has not had any fever or chills. No nausea or vomiting. Patient was tachycardic with heart rate 123 and up to 135 on admission. Blood pressure is also elevated 163/89 and pulse ox 98% on room air. Chest x-ray showed there is no focal airspace disease pneumothorax or pleural effusion. EKG showed sinus rhythm with marked sinus arrhythmia. Patient has been contacted monitor for alcohol withdrawal symptoms and delirium. Laboratory showed sodium 134 potassium 3.4 chloride 93 BUN: Creatinine 0.72 magnesium 0.9 total bilirubin level is 4.1 AST 245 ALT 164 and alk phos 82 and a CK 354 8 and lipase level is 68 and serum alcohol level is less than 10. Overnight patient became very agitated requiring restraint x4 and was transferred to MICU due to delirium tremors. Patient was given Ativan and Haldol. Patient was started on Precedex drip in the MICU. 08/30/2021 Patient is in the MICU. Awake alert and oriented x3. Still on Precedex drip at lower dose at 0.4mcg/kg/min. No complaints of chest pain or shortness of breath. No abdominal pain. No nausea or vomiting or diarrhea. Patient was started on oral diet. Afebrile. Laboratory showed WBC 10.0 hemoglobin 16.0 and MCV 108.4 platelets 54 Sodium 131 potassium 4.6 chloride 108 bicarb is 14 BUN 12 and creatinine 0.6 and magnesium came back to 2.0 liver enzymes and bilirubin level trending down to 2.6 AST 314 and ALT 123 Current medications reviewed. Objective - Vital Signs Vital signs: Vital Signs Temp 98.1 F 08/30/21 08:00 Pulse 76 08/30/21 11:00 Resp 19 08/30/21 11:00 BP 133/89 08/30/21 11:00 Pulse Ox 98 08/30/21 11:00 Intake & Output 08/29/21 08/30/21 08/30/21 18:59 06:59 18:59 Intake Total 1050 1910 1477.086 Output Total 600 665 550 Balance 450 1245 927.086 Intake: IV 750 1100 475 0.9% NaCl with KCl 20 Meq 700 100 /l 1,000 ml @ 100 mls/hr IV .BY DURATION [facility] Rx#: [id number] Dextrose 5% in Water 1, 75 000 ml @ 75 mls/hr IV . [id number] [facility] with Sodium Bicarb (1 Meq/ml) 150 ml Rx#:[id number] Mvi, Adult No.4 with Vit 600 400 K 10 ml Thiamine 100 mg Folic Acid 1 mg In 0.9% NaCl with KCl 20 Meq/l 1, 000 ml @ 100 mls/hr IV . BY DURATION [facility] Rx#: [id number] NACL with 20KCL 300 Sodium Chloride 0.9% 1, 150 000 ml @ 130 mls/hr IV . Q7H42M [facility] Rx#:[id number] Intake, IV Titration 181 750 5969.086 Amount 0.9% NaCl with KCl 20 Meq 940 /l 1,000 ml @ 100 mls/hr IV .BY DURATION [facility] Rx#: [id number] Dexmedetomidine/0.9% NaCl 300 200 62.086 (Pmx) 400 mcg In Empty Bag 1 bag @ 0.2 MCG/KG/HR 5.67 mls/hr IV .[id number] [facility] Rx#:[id number] Sodium Chloride 0.9% 1, 130 000 ml @ 130 mls/hr IV . Q7H42M [facility] Rx#:[id number] Oral 480 Output: Urine 600 665 550 Other: Voiding Method Urinal Urinal # Voids 1 1 # Bowel Movements 1 - Exam PHYSICAL EXAMINATION: Patient is lying in the bed comfortably, no acute distress, awake alert and oriented.. HEENT: Normocephalic. Neck is supple. Pupils reactive. Nostrils clear. Oral cavity is moist. Neck reveals no JVD, carotid bruits, or thyromegaly. CHEST EXAMINATION: Trachea is central. Symmetrical expansion. Lung rodriguez clear to auscultation and percussion. CARDIAC: Normal S1, S2 with no gallops. No murmurs ABDOMEN: Soft. Bowel sounds normal. No organomegaly. No abdominal bruits. Extremities: reveal no edema. No clubbing or cyanosis Neurologically awake, alert, oriented x3 with well-coordinated movements. No focal deficits noted Skin: No rash or skin lesions. Psychiatric: Cooperative. Nonsuicidal Musculoskeletal: No joint swelling or deformity. Normal range of motion. - Labs CBC & Chem 7: 08/30/21 06:47 08/30/21 06:47 Labs: Abnormal Lab Results - Last 24 Hours (Table) 08/30/21 08/30/21 Range/Units 06:47 06:47 MCV 108.4 H (80.0-100.0) fL MCH 35.9 H (25.0-35.0) pg Plt Count 54 L (150-450) k/uL Neutrophils # 8.0 H (1.3-7.7) k/uL Sodium 131 L (137-145) mmol/L Chloride 108 H (98-107) mmol/L Carbon Dioxide 14 L (22-30) mmol/L Creatinine 0.60 L (0.66-1.25) mg/dL Calcium 8.3 L (8.4-10.2) mg/dL Total Bilirubin 2.6 H (0.2-1.3) mg/dL AST 314 H (17-59) U/L ALT 123 H (4-49) U/L Assessment and Plan Assessment: Acute delirium tremens. Patient was transferred to MICU and started on Precedex drip. Severe alcohol abuse was one-point daily. Quit 2 days ago. Severe hypokalemia and hypomagnesemia. Replaced. Alcoholic hepatitis with elevated LFTs Hyperbilirubinemia secondary to alcoholic hepatitis Chronic thrombocytopenia and macrocytosis related to alcohol abuse Hypovolemic hyponatremia Mild rhabdomyolysis CK level 358 DVT prophylaxis Plan: Patient will be continued on IV hydration. Continue with Ativan and CIWA protocol. Currently in MICU and is on Precedex drip which will be gradually tapered down. Patient was started on oral diet and advance as tolerated. Possible transfer to medical floor in the next 24 hours. Bilirubin level is trending down. Time with Patient: Greater than 30
== END 2021-08-30 22:05 | disposition left against medical advice (07) | DRG 894 ==
LOC: EC 14:01 → 5NMEDONC 18:02 → 2SICU 23:31
PROVIDERS: ADMIT Internal Medicine; ATTEND Internal Medicine
PROC: HZ2ZZZZ Detoxification Services for Substance Abuse Treatment (ICD-10-PCS; principal; 2021-08-28)
DX: F10.231 Alcohol dependence with withdrawal delirium (principal); E87.1 Hypo-osmolality and hyponatremia; M62.82 Rhabdomyolysis; R44.3 Hallucinations, unspecified; F10.229 Alcohol dependence with intoxication, unspecified; K70.10 Alcoholic hepatitis without ascites; R41.0 Disorientation, unspecified; D69.6 Thrombocytopenia, unspecified; F17.210 Nicotine dependence, cigarettes, uncomplicated; D75.89 Other specified diseases of blood and blood-forming organs; E83.42 Hypomagnesemia; E86.1 Hypovolemia; E87.6 Hypokalemia; F41.9 Anxiety disorder, unspecified; Z78.1 Physical restraint status; Z91.018 Allergy to other foods
CPT/HCPCS: 36415; 71046; 80048; 80053; 80320; 82550; 83690; 83735; 84484; 85025; 93005; 96361; 96374; 99285

== ENCOUNTER 2021-09-23 13:03 | Emergency (ER) | payer OTHER ==
[2021-09-23 13:22] VITALS: BP 132/69; PULSE 98; RESP 20; TEMP 98.7
[2021-09-23] MEDS ORDERED: LORazepam 2 MG/ML INJ IV STA (14:03)
--- NOTE | 2021-09-23 14:10 | ED ---
General Adult HPI - General Chief complaint: Recheck/Abnormal Lab/Rx Stated complaint: ETOH withdrawal Time Seen by Provider: 09/23/21 13:58 Source: patient, family, RN notes reviewed, old records reviewed Mode of arrival: ambulatory Limitations: no limitations - History of Present Illness Initial comments: 31-year-old male presents with family member complaining of alcohol withdrawal symptoms. Patient is sitting upright on cart in a hallway 10. States he hasn't had a drink in 5 days and is having increasing tremors and shaking. Family member at bedside states that he was hearing voices yesterday while at work. Denies hearing voices at this time. Patient denies any homicidal or suicidal ideations. He was last hospitalized August 28 for EtOH withdrawal. He states that he has been to [facility] and did quit drinking. Last drink 5 days ago. Denies any drug use, denies smoking. He is requesting something to help with his tremors as he withdrawals. -: days(s) (5) Severity scale (1-10): 0 Treatments Prior to Arrival: none - Related Data Home Medications Medication Instructions Recorded Confirmed No Known Home Medications 09/23/21 09/23/21 Allergies Allergy/AdvReac Type Severity Reaction Status Date / Time baires Allergy Swelling Verified 09/23/21 14:25 Review of Systems ROS Statement: Those systems with pertinent positive or pertinent negative responses have been documented in the HPI. ROS Other: All systems not noted in ROS Statement are negative. Past Medical History Past Medical History: No Reported History History of Any Multi-Drug Resistant Organisms: None Reported Past Surgical History: No Surgical Hx Reported Past Psychological History: Anxiety Smoking Status: Current every day smoker Past Alcohol Use History: Abuse, Daily Past Drug Use History: None Reported, Marijuana - Past Family History Mother History Unknown: Yes Father History Unknown: Yes General Exam Limitations: no limitations General appearance: alert, in no apparent distress Head exam: Present: atraumatic, normocephalic, normal inspection Eye exam: Present: normal appearance. Absent: scleral icterus, conjunctival injection ENT exam: Present: normal exam, normal oropharynx, mucous membranes moist Neck exam: Present: normal inspection, full ROM. Absent: tenderness, meningismus Respiratory exam: Present: normal lung sounds bilaterally. Absent: respiratory distress, wheezes, rales, rhonchi, stridor, chest wall tenderness, decreased breath sounds Cardiovascular Exam: Present: regular rate, normal heart sounds. Absent: JVD GI/Abdominal exam: Present: soft. Absent: distended, tenderness Extremities exam: Present: normal capillary refill. Absent: pedal edema Neurological exam: Present: alert, oriented X3, normal gait Expanded Patient oriented to: Present: person, place, time Speech: Present: fluid speech Cranial nerves: EOM's Intact: Normal, Gag Reflex: Normal, Tongue Deviation: Normal Eye Response: (4) open spontaneously Motor Response: (6) obeys commands Verbal Response: (5) oriented [place] Total: 15 Psychiatric exam: Present: anxious. Absent: homicidal ideation, suicidal ideation Skin exam: Present: warm, dry, intact, normal color. Absent: cyanosis, diaphoretic Course Vital Signs 09/23/21 13:18 Temperature 98.7 F Pulse Rate 98 Respiratory 20 Rate Blood Pressure 132/69 O2 Sat by Pulse 97 Oximetry Medical Decision Making - Medical Decision Making 31-year-old male presents with tremors from alcohol withdrawal. He is requesting something to help with his tremors as he withdrawals. Last drink 5 days ago. Patient denies any homicidal or suicidal ideations. Patient was given a milligram of Ativan IV and states that he is feeling better. Vital signs are stable. Hemoglobin and hematocrit are stable. Potassium is 4.4. Magnesium is 1.2 and he was given Mag-Ox in the emergency room. EtOH is 0. Case is discussed with Dr. Owens patient was given a taper dosing of Chlordiazepoxide for 5 days. I did direct him to follow up with his primary care doctor and [facility] for withdrawal. Patient was discharged with friend ambulatory with a steady gait. - Lab Data Result diagrams: 09/23/21 14:07 09/23/21 14:07 Lab Results 09/23/21 09/23/21 09/23/21 Range/Units 14:07 14:07 14:07 WBC 10.3 (3.8-10.6) k/uL RBC 4.69 (4.30-5.90) m/uL Hgb 16.7 (13.0-17.5) gm/dL Hct 48.2 (39.0-53.0) % MCV 102.9 H D (80.0-100.0) fL MCH 35.6 H (25.0-35.0) pg MCHC 34.6 (31.0-37.0) g/dL RDW 13.9 (11.5-15.5) % Plt Count 95 L D (150-450) k/uL MPV 8.7 Neutrophils % 74 % Lymphocytes % 15 % Monocytes % 6 % Eosinophils % 1 % Basophils % 0 % Neutrophils # 7.7 (1.3-7.7) k/uL Lymphocytes # 1.6 (1.0-4.8) k/uL Monocytes # 0.6 (0-1.0) k/uL Eosinophils # 0.1 (0-0.7) k/uL Basophils # 0.0 (0-0.2) k/uL Macrocytosis Slight Sodium 133 L (137-145) mmol/L Potassium 4.4 (3.5-5.1) mmol/L Chloride 95 L (98-107) mmol/L Carbon Dioxide 24 (22-30) mmol/L Anion Gap 14 mmol/L BUN 13 (9-20) mg/dL Creatinine 0.72 (0.66-1.25) mg/dL Est GFR (CKD-EPI)AfAm >90 (>60 ml/min/1.73 sqM) Est GFR (CKD-EPI)NonAf >90 (>60 ml/min/1.73 sqM) Glucose 72 L (74-99) mg/dL Calcium 9.3 (8.4-10.2) mg/dL Magnesium 1.2 L (1.6-2.3) mg/dL Total Bilirubin 1.6 H (0.2-1.3) mg/dL AST 63 H (17-59) U/L ALT 54 H (4-49) U/L Alkaline Phosphatase 76 (38-126) U/L Total Protein 7.9 (6.3-8.2) g/dL Albumin 4.7 (3.5-5.0) g/dL Serum Alcohol <10 mg/dL Disposition Clinical Impression: Alcohol withdrawal syndrome Disposition: HOME SELF-CARE Condition: Good Instructions (If sedation given, give patient instructions): Alcohol Withdrawal (ED) Additional Instructions: Take the chlordiazepoxide as prescribed and follow-up with primary care doctor and [facility] for continuation of care Is patient prescribed a controlled substance at d/c from ED?: No Referrals: None,Stated [Primary Care Provider] - 1-2 days Time of Disposition: 15:56
[2021-09-23 14:23] LABS: Basophils % (A) 0 %; Eosinophils # (A) 0.1 k/uL (0-0.7); Eosinophils % (A) 1 %; HCT 48.2 % (39.0-53.0); HGB 16.7 gm/dL (13.0-17.5); Lymphocytes # (A) 1.6 k/uL (1.0-4.8); Lymphocytes % (A) 15 %; MCH 35.6 pg (25.0-35.0); MCHC 34.6 g/dL (31.0-37.0); MCV 102.9 fL (80.0-100.0); Macrocytosis Slight; Mean Platelet Volume 8.7; Monocytes # (A) 0.6 k/uL (0-1.0); Monocytes % (A) 6 %; Neutrophils # (A) 7.7 k/uL (1.3-7.7); Neutrophils % (A) 74 %; RBC 4.69 m/uL (4.30-5.90); RDW 13.9 % (11.5-15.5); WBC 10.3 k/uL (3.8-10.6)
[2021-09-23 14:35] LABS: ALT 54 U/L (4-49); AST 63 U/L (17-59); African American GFR (CKD) >90 (>60 ml/min/1.73 sqM); Albumin 4.7 g/dL (3.5-5.0); Alcohol <10 mg/dL; Alkaline Phosphatase 76 U/L (38-126); Anion Gap 14 mmol/L; Blood Urea Nitrogen 13 mg/dL (9-20); Calcium 9.3 mg/dL (8.4-10.2); Carbon Dioxide 24 mmol/L (22-30); Chloride 95 mmol/L (98-107); Glucose 72 mg/dL (74-99); Non-African American GFR(CKD) >90 (>60 ml/min/1.73 sqM); Potassium 4.4 mmol/L (3.5-5.1); Sodium 133 mmol/L (137-145); Total Bilirubin 1.6 mg/dL (0.2-1.3); Total Protein 7.9 g/dL (6.3-8.2)
[2021-09-23 14:56] LABS: Platelet Count 95 k/uL (150-450)
[2021-09-23] MEDS ORDERED: THIAMINE 100 MG/ML 2 ML VIAL IVP SCH (15:15)
[2021-09-23] MEDS ORDERED: MAGNESIUM OXIDE 400 MG TAB PO STA (15:55)
== END 2021-09-23 16:22 | disposition home or self-care (01) ==
LOC: EC 13:03
DX: F10.239 Alcohol dependence with withdrawal, unspecified (principal); F17.200 Nicotine dependence, unspecified, uncomplicated; Y90.0 Blood alcohol level of less than 20 mg/100 ml
CPT/HCPCS: 36415; 80053; 83735; 85025; 99284; 96374; 96375; G0480; J2060; J3411; 80320

== ENCOUNTER 2022-03-24 21:12 | Inpatient (IN) | payer OTHER ==
[2022-03-24] MEDS ORDERED: LORazepam 2 MG/ML INJ IV STA ×2 (22:49→22:51)
[2022-03-24] MEDS ORDERED: SODIUM CHLORIDE 0.9% 1,000 ML IV STA (22:49)
[2022-03-24] MEDS ORDERED: THIAMINE 100 MG/ML 2 ML VIAL IM STA (22:52)
[2022-03-24] MEDS ORDERED: LORazepam 2 MG/ML INJ IV PRN ×2 (22:52)
--- NOTE | 2022-03-24 22:54 | ED ---
Alcohol HPI - General Chief Complaint: Alcohol Stated Complaint: AMS due to Pills Time Seen by Provider: 03/24/22 22:42 Source: patient Mode of arrival: ambulatory Limitations: altered mental status - History of Present Illness Initial Comments: This patient is a 32-year-old man who presents to have evaluation for suspected alcohol withdrawal. He states that he drinks over a fifth of alcohol per day. He had his last drink on Monday. Patient is complaining of having tremor and hallucinations. Patient has been drinking more or less continuously for years. MD Complaint: alcohol withdrawal Time Since Last Drink: 4 -: days(s) Recent Trauma: No Associated Symptoms: tremors, other Chronic Alcohol Use: Yes - Related Data Home Medications Medication Instructions Recorded Confirmed EPINEPHrine (Auto Inject) [Epipen] 0.3 mg IM ONCE PRN 03/25/22 03/25/22 Sertraline [Zoloft] 50 mg PO DAILY 03/25/22 03/25/22 Allergies Allergy/AdvReac Type Severity Reaction Status Date / Time baires Allergy Swelling Verified 03/25/22 07:30 Review of Systems ROS Statement: Those systems with pertinent positive or pertinent negative responses have been documented in the HPI. ROS Other: All systems not noted in ROS Statement are negative. Constitutional: Denies: fever, weakness Eyes: Denies: vision change Respiratory: Denies: cough, dyspnea Cardiovascular: Reports: palpitations. Denies: chest pain, edema Gastrointestinal: Denies: abdominal pain, vomiting, diarrhea, melena, hematochezia Genitourinary: Denies: dysuria, hematuria Musculoskeletal: Denies: back pain Skin: Denies: rash Neurological: Denies: headache, weakness, numbness Psychiatric: Reports: anxiety, visual hallucinations Past Medical History Past Medical History: No Reported History History of Any Multi-Drug Resistant Organisms: None Reported Past Surgical History: No Surgical Hx Reported, Orthopedic Surgery Past Psychological History: Anxiety Smoking Status: Current every day smoker Past Alcohol Use History: Abuse, Daily Past Drug Use History: Marijuana - Past Family History Mother History Unknown: Yes Father History Unknown: Yes General Exam Limitations: altered mental status General appearance: alert, in no apparent distress, anxious Head exam: Present: atraumatic, normocephalic Eye exam: Present: normal appearance. Absent: scleral icterus, conjunctival injection Neck exam: Present: normal inspection Respiratory exam: Present: normal lung sounds bilaterally. Absent: respiratory distress, wheezes, rales, rhonchi, stridor Cardiovascular Exam: Present: normal rhythm, tachycardia (Rate approximately 112 at my exam), normal heart sounds. Absent: systolic murmur, diastolic murmur, rubs, gallop GI/Abdominal exam: Present: soft. Absent: distended, tenderness, guarding, rebound Extremities exam: Present: normal inspection, normal capillary refill. Absent: pedal edema, calf tenderness Back exam: Present: normal inspection Neurological exam: Present: alert Psychiatric exam: Present: anxious Skin exam: Present: warm, dry, intact, normal color. Absent: rash Course Vital Signs 03/24/22 03/24/22 03/25/22 21:34 21:38 01:50 Temperature 97.8 F Pulse Rate 116 H 107 H 112 H Respiratory 18 22 24 Rate Blood Pressure 135/94 133/73 137/93 O2 Sat by Pulse 96 97 99 Oximetry 03/25/22 03/25/22 03/25/22 02:53 03:00 05:00 Temperature Pulse Rate 99 103 H 98 Respiratory 24 22 24 Rate Blood Pressure 129/87 127/89 129/78 O2 Sat by Pulse 97 97 97 Oximetry 03/25/22 06:00 Temperature Pulse Rate 84 Respiratory 22 Rate Blood Pressure 127/79 O2 Sat by Pulse 98 Oximetry Medical Decision Making - Lab Data Result diagrams: 03/24/22 23:03 03/24/22 23:03 Lab Results 03/24/22 03/24/22 Range/Units 23:03 23:03 WBC 14.0 H (3.8-10.6) k/uL RBC 5.29 (4.30-5.90) m/uL Hgb 18.5 H (13.0-17.5) gm/dL Hct 53.6 H (39.0-53.0) % MCV 101.2 H (80.0-100.0) fL MCH 34.9 (25.0-35.0) pg MCHC 34.5 (31.0-37.0) g/dL RDW 14.1 (11.5-15.5) % Plt Count 153 (150-450) k/uL MPV 7.7 Neutrophils % 85 % Lymphocytes % 6 % Monocytes % 6 % Eosinophils % 1 % Basophils % 1 % Neutrophils # 11.9 H (1.3-7.7) k/uL Lymphocytes # 0.8 L (1.0-4.8) k/uL Monocytes # 0.8 (0-1.0) k/uL Eosinophils # 0.2 (0-0.7) k/uL Basophils # 0.1 (0-0.2) k/uL Macrocytosis Slight Sodium 132 L (137-145) mmol/L Potassium 3.7 (3.5-5.1) mmol/L Chloride 95 L (98-107) mmol/L Carbon Dioxide 19 L (22-30) mmol/L Anion Gap 18 mmol/L BUN 11 (9-20) mg/dL Creatinine 0.74 (0.66-1.25) mg/dL Est GFR (CKD-EPI)AfAm >90 (>60 ml/min/1.73 sqM) Est GFR (CKD-EPI)NonAf >90 (>60 ml/min/1.73 sqM) Glucose 95 (74-99) mg/dL Calcium 9.6 (8.4-10.2) mg/dL Magnesium 1.1 L (1.6-2.3) mg/dL Total Bilirubin 1.2 (0.2-1.3) mg/dL GGT 121 H (15-73) U/L AST 122 H (17-59) U/L ALT 76 H (4-49) U/L Alkaline Phosphatase 74 (38-126) U/L Total Protein 8.0 (6.3-8.2) g/dL Albumin 5.1 H (3.5-5.0) g/dL Serum Alcohol <10 mg/dL Disposition Clinical Impression: Alcohol withdrawal delirium, Hypomagnesemia Disposition: ADMITTED IP TO THIS HOSP Condition: Serious Is patient prescribed a controlled substance at d/c from ED?: No
[2022-03-24] MEDS: THIAMINE 100 MG TAB PO SCH (23:00)
[2022-03-24 23:13] LABS: Basophils # (A) 0.1 k/uL (0-0.2); Basophils % (A) 1 %; Eosinophils # (A) 0.2 k/uL (0-0.7); Eosinophils % (A) 1 %; HCT 53.6 % (39.0-53.0); HGB 18.5 gm/dL (13.0-17.5); Lymphocytes # (A) 0.8 k/uL (1.0-4.8); Lymphocytes % (A) 6 %; MCH 34.9 pg (25.0-35.0); MCHC 34.5 g/dL (31.0-37.0); MCV 101.2 fL (80.0-100.0); Macrocytosis Slight; Mean Platelet Volume 7.7; Monocytes # (A) 0.8 k/uL (0-1.0); Monocytes % (A) 6 %; Neutrophils # (A) 11.9 k/uL (1.3-7.7); Neutrophils % (A) 85 %; Platelet Count 153 k/uL (150-450); RBC 5.29 m/uL (4.30-5.90); RDW 14.1 % (11.5-15.5)
[2022-03-24 23:26] LABS: ALT 76 U/L (4-49); AST 122 U/L (17-59); African American GFR (CKD) >90 (>60 ml/min/1.73 sqM); Albumin 5.1 g/dL (3.5-5.0); Alcohol <10 mg/dL; Alkaline Phosphatase 74 U/L (38-126); Anion Gap 18 mmol/L; Blood Urea Nitrogen 11 mg/dL (9-20); Calcium 9.6 mg/dL (8.4-10.2); Carbon Dioxide 19 mmol/L (22-30); Chloride 95 mmol/L (98-107); GGT 121 U/L (15-73); Glucose 95 mg/dL (74-99); Magnesium 1.1 mg/dL (1.6-2.3); Non-African American GFR(CKD) >90 (>60 ml/min/1.73 sqM); Potassium 3.7 mmol/L (3.5-5.1); Sodium 132 mmol/L (137-145); Total Bilirubin 1.2 mg/dL (0.2-1.3)
--- NOTE | 2022-03-24 23:33 | XR ---
EXAMINATION TYPE: XR chest 1V portable DATE OF EXAM: 03/24/2022 COMPARISON: 08/28/2021 HISTORY: Heart palpitation TECHNIQUE: Single view FINDINGS: Heart and mediastinum are normal. Lungs are clear. Diaphragm is normal. Bony thorax is inta ct. IMPRESSION: Normal chest. No change.
[2022-03-24] MEDS ORDERED: MAGNESIUM SULFATE-D5W PMX 1 GM in DEXTROSE/WATER 1 100ML.BAG IVPB ONE (23:56)
[2022-03-25] MEDS ORDERED: NALOXONE 0.4 MG/ML 1 ML VIAL IV PRN (00:43)
[2022-03-25] MEDS ORDERED: MAG HYDROX/AL HYDROX/SIMETH 30 ML CUP PO PRN (00:43)
[2022-03-25] MEDS ORDERED: ZIPRASIDONE 20 MG VIAL IM STA (01:02)
[2022-03-25] MEDS: LORazepam 2 MG/ML INJ IV PRN ×2 (01:12→01:53)
[2022-03-25] MEDS: SODIUM CHLORIDE 0.9% 1,000 ML IV SCH ×2 (01:29→14:39)
[2022-03-25 03:35] LABS: Appearance,Urine Clear (Clear); Bilirubin,Urine Negative (Negative); Blood,Urine Negative (Negative); Color,Urine Colorless; Glucose,Urine (UA) Negative (Negative); Ketones,Urine 1+ (Negative); Leukocyte Esterase,Urine Negative (Negative); Nitrite,Urine Negative (Negative); PH, Urine 5.5 (5.0-8.0); Protein,Urine Negative (Negative); Specific Gravity,Urine 1.003 (1.001-1.035); Urobilinogen,Urine <2.0 mg/dL (<2.0)
[2022-03-25 03:55] LABS: Amphetamine Screen,Urine Not Detected (NotDetected); Barbiturate Screen,Urine Not Detected (NotDetected); Benzodiazepines Screen,Urine Detected (NotDetected); Cocaine Screen,Urine Not Detected (NotDetected); Methadone Screen, Urine Not Detected (NotDetected); Opiate Screen,Urine Not Detected (NotDetected); Oxycodone Screen, Urine Not Detected (NotDetected); Phencyclidine Screen,Urine Not Detected (NotDetected); Tricyclic Antidepressant,Urine Not Detected (NotDetected); Urn Cannabinoid Scrn Detected (NotDetected)
--- NOTE | 2022-03-25 07:47 | P.HPIM ---
History of Present Illness This is a pleasant 32 years old male with no significant past medical history presents because of Patient comes in for alcohol withdrawl, hallucinating. Patient also began new antidepressant 2 days ago. When I saw the patient in ER he was very shaky tremor in his hands very obvious, he is awake and alert but very drowsy and go to sleep easily but readily arousable and then he would be appropriate. Because of his withdrawal symptoms and treatment he received trying to calm him down he was poor historian this morning. He states he came to the hospital because of his alcohol problem, he drinks about a fifth every day, he checks 3 times a day also he takes 2-3 beers but no wine. He smokes about 1 pack per day but no illicit drugs. Urine drug screen was positive for marijuana Denies chest pain or headache or dizziness. No shortness of breath or coughing, no abdominal pain or diarrhea But he feels nauseous at times and he vomited in the emergency room. He admits for depression but denies suicidal or homicidal ideation and he denies hallucination or delusions. Vitals are stable Labs showed mild leukocytosis of 14.0, hemoglobin 18.5, platelet is 153, it looks concentrated sample. Sodium is 132, BUN is normal 11 creatinine normal 0.7. Low magnesium 1.1 Liver enzymes slightly elevated with AST 122 and ALT 76 but normal bilirubin 1.2. Urine analysis is negative for infection Urine drug screen is positive for benzodiazepines and marijuana Serum alcohol less than 10. Chest x-ray: No acute process. Review of Systems Review of systems CONSTITUTIONAL: No fever, no malaise, no fatigue. HEENT: No recent visual problems or hearing problems. Denied any sore throat. CARDIOVASCULAR: No orthopnea, PND, no palpitations, no syncope. PULMONARY: No shortness of breath, no cough, no hemoptysis. GASTROINTESTINAL: No diarrhea, no nausea, no vomiting, no abdominal pain. N ormoactive bowel sounds. NEUROLOGICAL: No headaches, no weakness, no numbness. HEMATOLOGICAL: Denies any bleeding or petechiae. GENITOURINARY: Denies any burning micturition, frequency, or urgency. MUSCULOSKELETAL/RHEUMATOLOGICAL: Denies any joint pain, swelling, or any muscle pain. ENDOCRINE: Denies any polyuria or polydipsia. Past Medical History Past Medical History: No Reported History History of Any Multi-Drug Resistant Organisms: None Reported Past Surgical History: No Surgical Hx Reported, Orthopedic Surgery Past Psychological History: Anxiety Smoking Status: Current every day smoker Past Alcohol Use History: Abuse, Daily Past Drug Use History: Marijuana - Past Family History Mother History Unknown: Yes Father History Unknown: Yes Medications and Allergies Home Medications Medication Instructions Recorded Confirmed Type EPINEPHrine (Auto Inject) [Epipen] 0.3 mg IM ONCE PRN 03/25/22 03/25/22 History Sertraline [Zoloft] 50 mg PO DAILY 03/25/22 03/25/22 History Allergies Allergy/AdvReac Type Severity Reaction Status Date / Time baires Allergy Swelling Verified 03/25/22 07:30 Physical Exam Vitals: Vital Signs Temp Pulse Resp BP Pulse Ox 03/25/22 06:00 84 22 127/79 98 03/25/22 05:00 98 24 129/78 97 03/25/22 03:00 103 H 22 127/89 97 03/25/22 02:53 99 24 129/87 97 03/25/22 01:50 112 H 24 137/93 99 03/24/22 21:38 107 H 22 133/73 97 03/24/22 21:34 97.8 F 116 H 18 135/94 96 Intake and Output 03/24/22 03/24/22 03/25/22 14:59 22:59 06:59 Other: Weight 81.647 kg -GENERAL: The patient is alert and oriented x3, drowsy not in any acute distress. Well developed, well nourished. Has shakiness and tremor in his hand HEENT: Pupils are round and equally reacting to light. EOMI. No scleral icterus. No conjunctival pallor. Normocephalic, atraumatic. No pharyngeal erythema. No thyromegaly. CARDIOVASCULAR: S1 and S2 present. No murmurs, rubs, or gallops. PULMONARY: Chest is clear to auscultation, no wheezing or crackles. ABDOMEN: Soft, nontender, nondistended, normoactive bowel sounds. No palpable organomegaly. MUSCULOSKELETAL: No joint swelling or deformity. EXTREMITIES: No cyanosis, clubbing, or pedal edema. NEUROLOGICAL: Gross neurological examination did not reveal any focal deficits. SKIN: No rashes. no petechiae. -*Gait is normal but he has difficulty because of his tremor and drowsiness Results CBC & Chem 7: 03/24/22 23:03 03/24/22 23:03 Labs: Abnormal Lab Results - Last 24 Hours (Table) 03/24/22 03/24/22 03/25/22 Range/Units 23:03 23:03 03:05 WBC 14.0 H (3.8-10.6) k/uL Hgb 18.5 H (13.0-17.5) gm/dL Hct 53.6 H (39.0-53.0) % MCV 101.2 H (80.0-100.0) fL Neutrophils # 11.9 H (1.3-7.7) k/uL Lymphocytes # 0.8 L (1.0-4.8) k/uL Sodium 132 L (137-145) mmol/L Chloride 95 L (98-107) mmol/L Carbon Dioxide 19 L (22-30) mmol/L Magnesium 1.1 L (1.6-2.3) mg/dL GGT 121 H (15-73) U/L AST 122 H (17-59) U/L ALT 76 H (4-49) U/L Albumin 5.1 H (3.5-5.0) g/dL Urine Ketones 1+ H (Negative) U Benzodiazepines Scrn Detected H (NotDetected) U Marijuana (THC) Screen Detected H (NotDetected) Assessment and Plan Assessment: Alcohol abuse with delirium tremens and alcohol withdrawal Depression Toxic/metabolic encephalopathy secondary to above improved Dehydration Electrolyte abnormality with hypomagnesemia elevated liver enzymes with transaminitis with AST more than ALT consistent with alcoholic liver disease Substance abuse with marijuana Plan: This is a pleasant 32 years old male who presents with alcohol abuse/withdrawal Continue with CIWA protocol and thiamine Psych consult benzodiazepines to help his agitation and withdrawal symptoms Patient counseled to quit smoking and he agrees, he agrees to the nicotine patch Neurontin starts magnesium replacement therapy, with magnesium oxide 400 mg 3 times a day Continue with gentle hydration Labs and medication were reviewed.. Continue same treatment. Continue with symptomatic treatment. R Monitor lytes and vitals. DVT and GI prophylaxis. Further recommendations as per clinical course of the patient DVT prophylaxis: Subcutaneous heparin GI Prophylaxis: Pepcid Prognosis is guarded
[2022-03-25] MEDS: MAGNESIUM OXIDE 400 MG TAB PO SCH ×3 (08:12→21:54)
[2022-03-25] MEDS: GABAPENTIN 300 MG CAP PO SCH ×2 (08:12→21:54)
[2022-03-25] MEDS: NICOTINE 21MG/24HR PATCH TRANSDERM SCH (08:12)
[2022-03-25] MEDS: FAMOTIDINE 20 MG TAB PO SCH ×2 (08:12→21:54)
[2022-03-25] MEDS: THIAMINE 100 MG TAB PO SCH ×2 (08:13→16:38)
[2022-03-25] MEDS: HEPARIN SODIUM,PORCINE/PF 5,000 UNIT/0.5 ML SYRINGE SQ SCH ×2 (08:14→21:54)
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
[2022-03-25] MEDS: SERTRALINE 50 MG TAB PO SCH (15:45)
[2022-03-25] MEDS: chlordiazePOXIDE 25 MG CAP PO SCH ×3 (16:15→21:54)
[2022-03-25] MEDS ORDERED: LORazepam 1 MG/0.5 ML VIAL IV PRN ×2 (18:24)
[2022-03-26] MEDS: traZODone HCL 50 MG TAB PO PRN ×2 (00:12→21:26)
[2022-03-26] MEDS: SODIUM CHLORIDE 0.9% 1,000 ML IV SCH ×2 (05:32→09:06)
[2022-03-26] MEDS: HEPARIN SODIUM,PORCINE/PF 5,000 UNIT/0.5 ML SYRINGE SQ SCH ×2 (09:04→21:26)
[2022-03-26] MEDS: THIAMINE 100 MG TAB PO SCH ×2 (09:04→17:25)
[2022-03-26] MEDS: SERTRALINE 50 MG TAB PO SCH (09:04)
[2022-03-26] MEDS: FAMOTIDINE 20 MG TAB PO SCH ×2 (09:04→21:27)
[2022-03-26] MEDS: chlordiazePOXIDE 25 MG CAP PO SCH ×2 (09:04→21:26)
[2022-03-26] MEDS: NICOTINE 21MG/24HR PATCH TRANSDERM SCH (09:04)
[2022-03-26] MEDS: GABAPENTIN 300 MG CAP PO SCH (09:05)
[2022-03-26] MEDS: MAGNESIUM OXIDE 400 MG TAB PO SCH ×2 (09:05→21:26)
[2022-03-26 11:37] LABS: Basophils # (A) 0.07 X 10*3/uL (0.00-0.10); Basophils % (A) 0.8 %; Eosinophils # (A) 0.13 X 10*3/uL (0.04-0.35); Eosinophils % (A) 1.6 %; HCT 50.2 % (39.6-50.0); HGB 17.4 g/dL (13.0-17.0); Immature Grans, Automated 1.1 %; Lymphocytes # (A) 1.55 X 10*3/uL (0.90-5.00); Lymphocytes % (A) 18.8 %; MCHC 34.7 g/dL (32.0-37.0); Mean Platelet Volume 9.8 fL (9.5-12.2); Monocytes # (A) 0.92 X 10*3/uL (0.20-1.00); Monocytes % (A) 11.1 %; NRBC Per 100 WBC 0 /100 WBCS (0.0-0.0); Neutrophils % (A) 66.6 %; Platelet Count 134 X 10*3/uL (140-440); RBC 4.97 X 10*6/uL (4.40-5.60); RDW 14.3 % (11.5-14.5); WBC 8.26 X 10*3/uL (4.50-10.00)
[2022-03-26 12:54] LABS: Magnesium 1.9 mg/dL (1.5-2.4)
[2022-03-26 13:17] LABS: African American GFR (CKD) 137.8 (60.0-200.0); Albumin 4.2 g/dL (3.8-4.9); Albumin/Globulin Ratio 1.65 (1.60-3.17); Anion Gap 16.2 mmol/L (10.00-18.00); BUN/Creat Ratio 13.56 Ratio (12.00-20.00); Bilirubin, Conjugated 0.21 mg/dL (0.20-0.40); Bilirubin,Unconjugated 0.5 mg/dL (0.20-1.00); Blood Urea Nitrogen 10.7 mg/dL (9.0-27.0); Calcium 8.9 mg/dL (8.7-10.3); Carbon Dioxide 19.7 mmol/L (20.0-27.5); Globulin 2.5 g/dL (1.6-3.3); Non-African American GFR(CKD) 118.9 (60.0-200.0); Potassium 3.8 mmol/L (3.5-5.5); Total Bilirubin 0.7 mg/dL (0.30-1.20); Total Protein 6.7 g/dL (6.2-8.2)
--- NOTE | 2022-03-26 14:38 | P.PN ---
Subjective This is a pleasant 32 years old male with no significant past medical history presents because of Patient comes in for alcohol withdrawl, hallucinating. Patient also began new antidepressant 2 days ago. When I saw the patient in ER he was very shaky tremor in his hands very obvious, he is awake and alert but very drowsy and go to sleep easily but readily arousable and then he would be appropriate. Because of his withdrawal symptoms and treatment he received trying to calm him down he was poor historian this morning. He states he came to the hospital because of his alcohol problem, he drinks about a fifth every day, he checks 3 times a day also he takes 2-3 beers but no wine. He smokes about 1 pack per day but no illicit drugs. Urine drug screen was positive for marijuana Denies chest pain or headache or dizziness. No shortness of breath or coughing, no abdominal pain or diarrhea But he feels nauseous at times and he vomited in the emergency room. He admits for depression but denies suicidal or homicidal ideation and he denies hallucination or delusions. Vitals are stable Labs showed mild leukocytosis of 14.0, hemoglobin 18.5, platelet is 153, it looks concentrated sample. Sodium is 132, BUN is normal 11 creatinine normal 0.7. Low magnesium 1.1 Liver enzymes slightly elevated with AST 122 and ALT 76 but normal bilirubin 1.2. Urine analysis is negative for infection Urine drug screen is positive for benzodiazepines and marijuana Serum alcohol less than 10. Chest x-ray: No acute process. 03/26/2022 patient was sleepy this morning, girlfriend at bedside stating that he was awake all night and he was agitated and he was just slipped this morning, We will make some changes regarding his medication given his excessive sleepiness this morning, her going to discontinue gabapentin and Valium already discontinued. Also we will taper Librium 3 times a day down to twice a day Percocet psychiatric recommendation. Also at the girlfriend [place] flat something for night to help him sleep, Restoril 15 mg is added patient and GF request. His electrolytes looks improvement. Leukocytosis improved. Hemoglobin coming down and is better now at 17.4. Platelets 134. Magnesium 1.9. It looks patient is improving at Psychiatry found patient not eligible for inpatient mental health unit and the site of the case Objective - Vital Signs Vital signs: Vital Signs Temp 98.2 F 03/26/22 07:58 Pulse 84 03/26/22 07:58 Resp 18 03/26/22 07:58 BP 128/76 03/26/22 07:58 Pulse Ox 99 03/26/22 07:58 FiO2 Intake & Output 03/25/22 03/26/22 03/26/22 18:59 06:59 18:59 Weight 81.647 kg Other: # Voids 2 - Exam GENERAL: The patient is alert and oriented x3, not in any acute distress. Well developed, well nourished. HEENT: Pupils are round and equally reacting to light. EOMI. No scleral icterus. No conjunctival pallor. Normocephalic, atraumatic. No pharyngeal erythema. No thyromegaly. CARDIOVASCULAR: S1 and S2 present. No murmurs, rubs, or gallops. PULMONARY: Chest is clear to auscultation, no wheezing or crackles. ABDOMEN: Soft, nontender, nondistended, normoactive bowel sounds. No palpable organomegaly. MUSCULOSKELETAL: No joint swelling or deformity. EXTREMITIES: No cyanosis, clubbing, or pedal edema. NEUROLOGICAL: Gross neurological examination did not reveal any focal deficits. SKIN: No rashes. no petechiae. - Labs CBC & Chem 7: 03/26/22 07:33 03/26/22 07:33 Assessment and Plan Assessment: Alcohol abuse with delirium tremens and alcohol withdrawal Depression Toxic/metabolic encephalopathy secondary to above improved Dehydration Electrolyte abnormality with hypomagnesemia elevated liver enzymes with transaminitis with AST more than ALT consistent with alcoholic liver disease Substance abuse with marijuana Plan: This is a pleasant 32 years old male who presents with alcohol abuse/withdrawal Continue with CIWA protocol and thiamine Psych consult send and no need for psych unit admission per their recommendation off benzodiazepines to help his agitation and withdrawal symptoms. Currently on Restoril for sleep as well Patient counseled to quit smoking and he agrees, he agrees to the nicotine patch Discontinue Neurontin starts magnesium replacement therapy, with magnesium oxide 400 mg 2 times a day Continue with gentle hydration Labs and medication were reviewed.. Continue same treatment. Continue with symptomatic treatment. R Monitor lytes and vitals. DVT and GI prophylaxis. Further recommendations as per clinical course of the patient DVT prophylaxis: Subcutaneous heparin GI Prophylaxis: Pepcid Prognosis is guarded
[2022-03-26] MEDS: ACETAMINOPHEN TAB 325 MG TAB PO PRN (21:26)
[2022-03-26] MEDS: TEMAZEPAM 15 MG CAP PO SCH (21:26)
[2022-03-27] MEDS: SODIUM CHLORIDE 0.9% 1,000 ML IV SCH ×2 (09:16→20:34)
[2022-03-27] MEDS: chlordiazePOXIDE 25 MG CAP PO SCH ×2 (09:17→20:51)
[2022-03-27] MEDS: FAMOTIDINE 20 MG TAB PO SCH ×2 (09:17→20:51)
[2022-03-27] MEDS: HEPARIN SODIUM,PORCINE/PF 5,000 UNIT/0.5 ML SYRINGE SQ SCH ×2 (09:17→20:51)
[2022-03-27] MEDS: MAGNESIUM OXIDE 400 MG TAB PO SCH ×2 (09:17→20:51)
[2022-03-27] MEDS: SERTRALINE 50 MG TAB PO SCH (09:17)
[2022-03-27] MEDS: THIAMINE 100 MG TAB PO SCH ×2 (09:17→16:56)
[2022-03-27] MEDS: NICOTINE 21MG/24HR PATCH TRANSDERM SCH (10:13)
[2022-03-27 10:18] LABS: Basophils # (A) 0.07 X 10*3/uL (0.00-0.10); Basophils % (A) 1.1 %; Eosinophils # (A) 0.13 X 10*3/uL (0.04-0.35); HCT 46.4 % (39.6-50.0); HGB 15.9 g/dL (13.0-17.0); Immature Grans, Automated 1.2 %; Lymphocytes # (A) 1.84 X 10*3/uL (0.90-5.00); Lymphocytes % (A) 27.9 %; MCH 34.3 pg (27.0-32.0); MCHC 34.3 g/dL (32.0-37.0); MCV 100.2 fL (80.0-97.0); Mean Platelet Volume 9.7 fL (9.5-12.2); Monocytes # (A) 0.79 X 10*3/uL (0.20-1.00); NRBC Per 100 WBC 0 /100 WBCS (0.0-0.0); Neutrophils # (A) 3.69 X 10*3/uL (1.80-7.70); Neutrophils % (A) 55.8 %; Platelet Count 138 X 10*3/uL (140-440); RBC 4.63 X 10*6/uL (4.40-5.60)
[2022-03-27 11:21] LABS: ALT 53 U/L (10-49); AST 49 U/L (14-35); African American GFR (CKD) 143.4 (60.0-200.0); Albumin 3.7 g/dL (3.8-4.9); Albumin/Globulin Ratio 1.68 (1.60-3.17); Alkaline Phosphatase 70 U/L (41-126); BUN/Creat Ratio 9.89 Ratio (12.00-20.00); Bilirubin, Conjugated <0.20 mg/dL (0.20-0.40); Blood Urea Nitrogen 7.1 mg/dL (9.0-27.0); Calcium 8.8 mg/dL (8.7-10.3); Carbon Dioxide 23.9 mmol/L (20.0-27.5); Chloride 106 mmol/L (96-109); Globulin 2.2 g/dL (1.6-3.3); Glucose 84 mg/dL (70-110); Non-African American GFR(CKD) 123.7 (60.0-200.0); Potassium 4.1 mmol/L (3.5-5.5); Sodium 142 mmol/L (135-145); Total Protein 5.8 g/dL (6.2-8.2)
--- NOTE | 2022-03-27 17:06 | P.PN ---
Subjective This is a pleasant 32 years old male with no significant past medical history presents because of Patient comes in for alcohol withdrawl, hallucinating. Patient also began new antidepressant 2 days ago. When I saw the patient in ER he was very shaky tremor in his hands very obvious, he is awake and alert but very drowsy and go to sleep easily but readily arousable and then he would be appropriate. Because of his withdrawal symptoms and treatment he received trying to calm him down he was poor historian this morning. He states he came to the hospital because of his alcohol problem, he drinks about a fifth every day, he checks 3 times a day also he takes 2-3 beers but no wine. He smokes about 1 pack per day but no illicit drugs. Urine drug screen was positive for marijuana Denies chest pain or headache or dizziness. No shortness of breath or coughing, no abdominal pain or diarrhea But he feels nauseous at times and he vomited in the emergency room. He admits for depression but denies suicidal or homicidal ideation and he denies hallucination or delusions. Vitals are stable Labs showed mild leukocytosis of 14.0, hemoglobin 18.5, platelet is 153, it looks concentrated sample. Sodium is 132, BUN is normal 11 creatinine normal 0.7. Low magnesium 1.1 Liver enzymes slightly elevated with AST 122 and ALT 76 but normal bilirubin 1.2. Urine analysis is negative for infection Urine drug screen is positive for benzodiazepines and marijuana Serum alcohol less than 10. Chest x-ray: No acute process. 03/26/2022 patient was sleepy this morning, girlfriend at bedside stating that he was awake all night and he was agitated and he was just slipped this morning, We will make some changes regarding his medication given his excessive sleepiness this morning, her going to discontinue gabapentin and Valium already discontinued. Also we will taper Librium 3 times a day down to twice a day Percocet psychiatric recommendation. Also at the girlfriend [place] flat something for night to help him sleep, Restoril 15 mg is added patient and GF request. His electrolytes looks improvement. Leukocytosis improved. Hemoglobin coming down and is better now at 17.4. Platelets 134. Magnesium 1.9. It looks patient is improving at Psychiatry found patient not eligible for inpatient mental health unit and the site of the case 03/27/2012 Patient seen and examined by me at bedside during morning rounds. Patient was lying in bed just workup, lesser sleepy than yesterday, he looks appropriate, oriented to time place and person but he was somewhat sleepy. He denies any specific complaints, no chest pain, no dyspnea, no change in urine or bowel habits. No fever. Denies any other new complaints, no nausea vomiting or diarrhea. Patient hemodynamically stable. Labs showing improvement. He has mildly elevated liver enzymes secondary to alcohol effect. psychiatrist service evaluated the patient for his depression and they recomm ended no need for inpatient mental health admission . Psychiatrist service already signed off. Patient is on tapered dose of Librium and he slept better than yesterday on the Restoril and also gentle hydration and continue with CIWA protocol. Objective - Vital Signs Vital signs: Vital Signs Temp 97.8 F 03/27/22 08:00 Pulse 87 03/27/22 08:00 Resp 18 03/27/22 08:00 BP 107/71 03/27/22 08:00 Pulse Ox 99 03/27/22 08:00 FiO2 Intake & Output 03/26/22 03/27/22 03/27/22 18:59 06:59 18:59 Other: # Voids 2 3 - Exam GENERAL: The patient is alert and oriented x3, not in any acute distress. Well developed, well nourished. HEENT: Pupils are round and equally reacting to light. EOMI. No scleral icterus. No conjunctival pallor. Normocephalic, atraumatic. No pharyngeal erythema. No thyromegaly. CARDIOVASCULAR: S1 and S2 present. No murmurs, rubs, or gallops. PULMONARY: Chest is clear to auscultation, no wheezing or crackles. ABDOMEN: Soft, nontender, nondistended, normoactive bowel sounds. No palpable organomegaly. MUSCULOSKELETAL: No joint swelling or deformity. EXTREMITIES: No cyanosis, clubbing, or pedal edema. NEUROLOGICAL: Gross neurological examination did not reveal any focal deficits. SKIN: No rashes. no petechiae. - Labs CBC & Chem 7: 03/27/22 05:59 03/27/22 05:59 Labs: Abnormal Lab Results - Last 24 Hours (Table) 03/26/22 03/26/22 Range/Units 07:33 07:33 Hgb 17.4 H (13.0-17.0) g/dL Hct 50.2 H (39.6-50.0) % MCV 101.0 H (80.0-97.0) fL MCH 35.0 H (27.0-32.0) pg Plt Count 134 L (140-440) X 10*3/uL Immature Gran # 0.09 H (0.00-0.04) X 10*3/uL Carbon Dioxide 19.7 L (20.0-27.5) mmol/L AST 71 H (14-35) U/L ALT 65 H (10-49) U/L Assessment and Plan Assessment: Alcohol abuse with delirium tremens and alcohol withdrawal Depression Toxic/metabolic encephalopathy secondary to above improved Dehydration Electrolyte abnormality with hypomagnesemia elevated liver enzymes with transaminitis with AST more than ALT consistent with alcoholic liver disease Substance abuse with marijuana Plan: This is a pleasant 32 years old male who presents with alcohol abuse/withdrawal Continue with CIWA protocol and thiamine Psych consult is noted and they are sent of the case, continue with tapered Librium for psychiatrist recommendation and other psych medication benzodiazepines to help his agitation and withdrawal symptoms. Currently on Restoril for sleep as well Patient counseled to quit smoking and he agrees, he agrees to the nicotine patch Continue with electrolyte replacement Continue with gentle hydration Labs and medication were reviewed.. Continue same treatment. Continue with symptomatic treatment. R Monitor lytes and vitals. DVT and GI prophylaxis. Further recommendations as per clinical course of the patient DVT prophylaxis: Subcutaneous heparin GI Prophylaxis: Pepcid We'll keep monitoring for another 24 hours
[2022-03-27] MEDS: traZODone HCL 50 MG TAB PO PRN (20:51)
[2022-03-27] MEDS: ACETAMINOPHEN TAB 325 MG TAB PO PRN (20:51)
[2022-03-27] MEDS: TEMAZEPAM 15 MG CAP PO SCH (20:51)
[2022-03-28] MEDS: SODIUM CHLORIDE 0.9% 1,000 ML IV SCH (07:41)
[2022-03-28] MEDS: MAGNESIUM OXIDE 400 MG TAB PO SCH ×2 (08:56→20:39)
[2022-03-28] MEDS: NICOTINE 21MG/24HR PATCH TRANSDERM SCH (08:56)
[2022-03-28] MEDS: HEPARIN SODIUM,PORCINE/PF 5,000 UNIT/0.5 ML SYRINGE SQ SCH ×2 (08:56→20:39)
[2022-03-28] MEDS: FAMOTIDINE 20 MG TAB PO SCH ×2 (08:56→20:39)
[2022-03-28] MEDS: SERTRALINE 50 MG TAB PO SCH (08:56)
[2022-03-28] MEDS: chlordiazePOXIDE 25 MG CAP PO SCH ×2 (08:56→20:39)
[2022-03-28] MEDS: THIAMINE 100 MG TAB PO SCH ×2 (08:56→16:30)
[2022-03-28] MEDS: TEMAZEPAM 15 MG CAP PO SCH (20:39)
[2022-03-29 03:51] VITALS: RESP 17
[2022-03-29 07:51] VITALS: BP 110/73; PULSE 81; TEMP 96.9
[2022-03-29] MEDS: chlordiazePOXIDE 25 MG CAP PO SCH (08:10)
[2022-03-29] MEDS: HEPARIN SODIUM,PORCINE/PF 5,000 UNIT/0.5 ML SYRINGE SQ SCH (08:10)
[2022-03-29] MEDS: FAMOTIDINE 20 MG TAB PO SCH (08:11)
[2022-03-29] MEDS: THIAMINE 100 MG TAB PO SCH (08:11)
[2022-03-29] MEDS: NICOTINE 21MG/24HR PATCH TRANSDERM SCH (08:11)
[2022-03-29] MEDS: SERTRALINE 50 MG TAB PO SCH (08:11)
[2022-03-29] MEDS: MAGNESIUM OXIDE 400 MG TAB PO SCH (08:11)
[2022-03-29] MEDS: SODIUM CHLORIDE 0.9% 1,000 ML IV SCH ×2 (08:11)
--- NOTE | 2022-03-29 09:40 | P.PN ---
Subjective Progress Note Date: 03/28/22 This is a pleasant 32 years old male with no significant past medical history presents because of Patient comes in for alcohol withdrawl, hallucinating. Patient also began new antidepressant 2 days ago. When I saw the patient in ER he was very shaky tremor in his hands very obvious, he is awake and alert but very drowsy and go to sleep easily but readily arousable and then he would be appropriate. Because of his withdrawal symptoms and treatment he received trying to calm him down he was poor historian this morning. He states he came to the hospital because of his alcohol problem, he drinks about a fifth every day, he checks 3 times a day also he takes 2-3 beers but no wine. He smokes about 1 pack per day but no illicit drugs. Urine drug screen was positive for marijuana Denies chest pain or headache or dizziness. No shortness of breath or coughing, no abdominal pain or diarrhea But he feels nauseous at times and he vomited in the emergency room. He admits for depression but denies suicidal or homicidal ideation and he denies hallucination or delusions. Vitals are stable Labs showed mild leukocytosis of 14.0, hemoglobin 18.5, platelet is 153, it looks concentrated sample. Sodium is 132, BUN is normal 11 creatinine normal 0.7. Low magnesium 1.1 Liver enzymes slightly elevated with AST 122 and ALT 76 but normal bilirubin 1.2. Urine analysis is negative for infection Urine drug screen is positive for benzodiazepines and marijuana Serum alcohol less than 10. Chest x-ray: No acute process. 03/26/2022 patient was sleepy this morning, girlfriend at bedside stating that he was awake all night and he was agitated and he was just slipped this morning, We will make some changes regarding his medication given his excessive sleepiness this morning, her going to discontinue gabapentin and Valium already discontinued. Also we will taper Librium 3 times a day down to twice a day Percocet psychiatric recommendation. Also at the girlfriend [place] flat something for night to help him sleep, Restoril 15 mg is added patient and GF request. His electrolytes looks improvement. Leukocytosis improved. Hemoglobin coming down and is better now at 17.4. Platelets 134. Magnesium 1.9. It looks patient is improving at Psychiatry found patient not eligible for inpatient mental health unit and the site of the case 03/27/2022 Patient seen and examined by me at bedside during morning rounds. Patient was lying in bed just workup, lesser sleepy than yesterday, he looks appropriate, oriented to time place and person but he was somewhat sleepy. He denies any specific complaints, no chest pain, no dyspnea, no change in urine or bowel habits. No fever. Denies any other new complaints, no nausea vomiting or diarrhea. Patient hemodynamically stable. Labs showing improvement. He has mildly elevated liver enzymes secondary to alcohol effect. psychiatrist service evaluated the patient for his depression and they recommended no need for inpatient mental health admission . Psychiatrist service already signed off. Patient is on tapered dose of Librium and he slept better than yesterday on the Restoril and also gentle hydration and continue with CIWA protocol. 03/28/2022 Patient is currently trying the bed. Still very shaky and having withdrawal symptoms. Unsteady gait. No commerce of chest pain or shortness of breath. No nausea vomiting or abdominal pain or diarrhea. Patient has been afebrile. Patient was seen by psychiatry due to depression. Also on Zoloft and trazodone Continued on tapering dose of Librium 25 mg twice a day and IV hydration. Continue with multivitamins. Current medications reviewed. Objective - Vital Signs Vital signs: Vital Signs Temp 98.1 F 03/28/22 19:01 Pulse 82 03/28/22 19:01 Resp 18 03/28/22 19:01 BP 126/88 03/28/22 19:01 Pulse Ox 99 03/28/22 19:01 FiO2 Intake & Output 03/28/22 03/28/22 03/29/22 06:59 18:59 06:59 Other: # Voids 2 3 - Exam - Exam GENERAL: The patient is alert and oriented x3, not in any acute distress. Well developed, well nourished. Still shaky and drowsy. HEENT: Pupils are round and equally reacting to light. EOMI. No scleral icterus. No conjunctival pallor. Normocephalic, atraumatic. No pharyngeal erythema. No thyromegaly. CARDIOVASCULAR: S1 and S2 present. No murmurs, rubs, or gallops. PULMONARY: Chest is clear to auscultation, no wheezing or crackles. ABDOMEN: Soft, nontender, nondistended, normoactive bowel sounds. No palpable organomegaly. MUSCULOSKELETAL: No joint swelling or deformity. EXTREMITIES: No cyanosis, clubbing, or pedal edema. NEUROLOGICAL: Gross neurological examination did not reveal any focal deficits. SKIN: No rashes. no petechiae. - Labs CBC & Chem 7: 03/27/22 05:59 03/27/22 05:59 Assessment and Plan Assessment: Alcohol abuse with delirium tremens and alcohol withdrawal Depression Toxic/metabolic encephalopathy secondary to above improved Dehydration Electrolyte abnormality with hypomagnesemia elevated liver enzymes with transaminitis with AST more than ALT consistent with alcoholic liver disease Substance abuse with marijuana Plan: This is a pleasant 32 years old male who presents with alcohol abuse/withdrawal Continue with CIWA protocol and thiamine Psych consult is noted and they are sent of the case, continue with tapered Librium for psychiatrist recommendation and other psych medication benzodiazepines to help his agitation and withdrawal symptoms. Currently on Restoril for sleep as well Patient counseled to quit smoking and he agrees, he agrees to the nicotine patch Continue with electrolyte replacement Continue with gentle hydration Labs and medication were reviewed..Monitor lytes and vitals. DVT and GI prophylaxis. DVT prophylaxis: Subcutaneous heparin GI Prophylaxis: Pepcid We'll keep monitoring for another 24 hours Time with Patient: Greater than 30
== END 2022-03-29 12:25 | disposition home or self-care (01) | DRG 896 ==
LOC: EC 21:12 → 4SSUR 03-25 00:44
PROVIDERS: ADMIT Internal Medicine; ATTEND Internal Medicine
PROC: HZ2ZZZZ Detoxification Services for Substance Abuse Treatment (ICD-10-PCS; principal; 2022-03-25)
DX: F10.231 Alcohol dependence with withdrawal delirium (principal); G92.8 Other toxic encephalopathy; F32.A Depression, unspecified; E86.0 Dehydration; Z71.6 Tobacco abuse counseling; Z71.41 Alcohol abuse counseling and surveillance of alcoholic; K70.9 Alcoholic liver disease, unspecified; R74.8 Abnormal levels of other serum enzymes; F12.10 Cannabis abuse, uncomplicated; E83.42 Hypomagnesemia; D72.829 Elevated white blood cell count, unspecified; F17.210 Nicotine dependence, cigarettes, uncomplicated; F41.9 Anxiety disorder, unspecified; Z79.899 Other long term (current) drug therapy
CPT/HCPCS: 36415; 71045; 80048; 80053; 80076; 80306; 80320; 81003; 82977; 83735; 85025; 96361; 96365; 96372; 96375; 96376; 99285

== ENCOUNTER 2023-01-04 21:21 | Emergency (ER) | payer OTHER ==
[2023-01-04 21:32] VITALS: RESP 18
[2023-01-04] MEDS ORDERED: SODIUM CHLORIDE 0.9% 500 ML 500 ML IV STA (21:49)
[2023-01-04] MEDS ORDERED: ASPIRIN 81 MG PO STA (21:49)
--- NOTE | 2023-01-04 22:26 | ED ---
Chest Pain HPI - General Chief Complaint: Chest Pain Stated Complaint: Chest Pain Time Seen by Provider: 01/04/23 21:41 Source: patient, EMS Mode of arrival: EMS Limitations: no limitations - History of Present Illness Initial Comments: 32-year-old male brought in by PD with complaints of centralized chest pain. PD reports that they were on their way to the police station when the patient began complaining of chest pain, patient does have history of [place]. Pain feels like a pressure in the center of the chest. He does admit to shortness of breath. S tates that he has not taken his medications today. Denies nausea, vomiting, abdominal pain. No fevers or chills. No URI like symptoms. No palpitations. - Related Data Home Medications Medication Instructions Recorded Confirmed traZODone HCL [Desyrel] 100 mg PO HS 09/05/22 09/05/22 Previous Rx's Medication Instructions Recorded Aspirin 81 mg PO DAILY 30 Days #30 tab 08/22/22 Atorvastatin [Lipitor] 80 mg PO HS 30 Days #30 tab 08/22/22 Metoprolol Tartrate [Lopressor] 25 mg PO BID 30 Days #60 tab 08/22/22 Nitroglycerin Sl Tabs [Nitrostat] 0.4 mg SUBLINGUAL Q5M PRN #30 tab 08/22/22 Pantoprazole [Protonix] 40 mg PO AC-BRKFST 15 Days #15 tab 08/22/22 Prasugrel [Effient] 10 mg PO DAILY #90 tablet 08/22/22 Sertraline [Zoloft] 50 mg PO DAILY 30 Days #30 tab 08/22/22 Spironolactone [Aldactone] 25 mg PO DAILY 30 Days #30 tab 08/22/22 Thiamine [Vitamin B-1] 100 mg PO DAILY 30 Days #30 tab 08/22/22 lisinopriL 2.5 mg PO DAILY #30 tablet 09/06/22 Allergies Allergy/AdvReac Type Severity Reaction Status Date / Time baires Allergy Swelling Verified 01/04/23 21:32 Review of Systems ROS Statement: Those systems with pertinent positive or pertinent negative responses have been documented in the HPI. ROS Other: All systems not noted in ROS Statement are negative. EKG Findings - EKG Comments: EKG Findings:: Sinus rhythm ventricular rate 92. W[place] interval 155. QRS 109. QT 331. QTc 381. No ST-T deviation. Past Medical History Past Medical History: GERD/Reflux, Myocardial Infarction ([place]) History of Any Multi-Drug Resistant Organisms: None Reported Past Surgical History: No Surgical Hx Reported, Orthopedic Surgery Additional Past Surgical History / Comment(s): 2 stents placed 08/17/22 Past Anesthesia/Blood Transfusion Reactions: No Reported Reaction Past Psychological History: Anxiety Smoking Status: Former smoker Past Alcohol Use History: Abuse, Daily Past Drug Use History: Marijuana - Past Family History Mother History Unknown: Yes Father History Unknown: Yes General Exam Limitations: no limitations General appearance: alert, in no apparent distress Head exam: Present: atraumatic, normocephalic, normal inspection Eye exam: Present: normal appearance, PERRL, EOMI. Absent: scleral icterus, conjunctival injection, periorbital swelling Neck exam: Present: normal inspection, full ROM Respiratory exam: Present: normal lung sounds bilaterally. Absent: respiratory distress, wheezes, rales, rhonchi, stridor Cardiovascular Exam: Present: regular rate, normal rhythm, normal heart sounds. Absent: systolic murmur, diastolic murmur, rubs, gallop, clicks Neurological exam: Present: alert, oriented X3, CN II-XII intact Psychiatric exam: Present: normal affect, normal mood Skin exam: Present: warm, dry, intact, normal color. Absent: rash Course Vital Signs 01/04/23 01/05/23 21:23 00:26 Temperature 98.2 F 98.1 F Pulse Rate 96 84 Respiratory 18 18 Rate Blood Pressure 124/78 110/71 O2 Sat by Pulse 99 98 Oximetry Chest Pain MDM - MDM Was pt. sent in by a medical professional or institution (, PA, HEADLINER INSTALLER, urgent care, hospital, or halfway...) When possible be specific @ -No Did you speak to anyone other than the patient for history (EMS, parent, family, police, friend...)? What history was obtained from this source @ -No Did you review nursing and triage notes (agree or disagree)? Why? @ -I reviewed and agree with nursing and triage notes Were old charts reviewed (outside hosp., previous admission, EMS record, old EKG, old radiological studies, urgent care reports/EKG's, halfway records)? Report findings @ -Patient's most recent catheterization was reviewed, which showed a patent stent in the LAD and no disease of the remaining vessels. Differential Diagnosis (chest pain, altered mental status, abdominal pain women, abdominal pain men, vaginal bleeding, weakness, fever, dyspnea, syncope, headache, dizziness, GI bleed, back pain, seizure, CVA, palpatations, mental health, musculoskeletal)? @ -[facility] Differential Chest Pain: Stable Angina, Unstable Angina, STEMI, NSTEMI Aortic Dissection, Pneumothorax, Musculoskeletal, Esophageal Spasm GERD, Cholecystitis, Pancreatitis, Zoster This is not meant to be an all-inclusive list. EKG interpreted by me (3pts min.). @ -As above X-rays interpreted by me (1pt min.). @ -Chest x-ray shows no acute process CT interpreted by me (1pt min.). @ -None done U/S interpreted by me (1pt. min.). @ -None done What testing was considered but not performed or refused? (CT, X-rays, U/S, labs )? Why? @ -None What meds were considered but not given or refused? Why? @ -None Did you discuss the management of the patient with other professionals (professionals i.e. , PA, HEADLINER INSTALLER, lab, RT, psych nurse, social welfare research worker, parliamentary counsel, teacher, ordnance officer, pillowcase cutter)? Give summary @ -No Was smoking cessation discussed for >3mins.? @ -No Was critical care preformed (if so, how long)? @ -No Were there social determinants of health that impacted care today? How? (Homelessness, low income, unemployed, alcoholism, drug addiction, transportation, low edu. Level, literacy, decrease access to med. care, penitentiary, rehab)? @ -No Was there de-escalation of care discussed even if they declined (Discuss DNR or withdrawal of care, Hospice)? DNR status @ -No What co-morbidities impacted this encounter? (DM, HTN, Smoking, COPD, CAD, Cancer, CVA, ARF, Chemo, Hep., AIDS, mental health diagnosis, sleep apnea, morbid obesity)? @ -None Was patient admitted / discharged? Hospital course, mention meds given and route, prescriptions, significant lab abnormalities, going to OR and other pertinent info. @ -32-year-old male presenting with PD for chest pain. Police report that the patient reported chest pain as a were bringing him to the police station. Physical examination is unremarkable. Negative troponin and EKG. No acute findings on chest x-ray. Patient's most recent catheterization was performed back in August this year which showed a patent stent in the LAD in no disease of the remaining vessels. Patient is stable for discharge into police custody. Follow-up with PCP. Report back to ER with any new or worsening symptoms. Discussed return parameters and answered all questions. Patient conveyed verbal understanding and agreed to the plan. I discussed this case in detail with my attending Dr. Rios Undiagnosed new problem with uncertain prognosis? @ -No Drug Therapy requiring intensive monitoring for toxicity (Heparin, Nitro, Insulin, Cardizem)? @ -No Were any procedures done? @ -No Diagnosis/symptom? @ -chest pain Acute, or Chronic, or Acute on Chronic? @ -Acute Uncomplicated (without systemic symptoms) or Complicated (systemic symptoms)? @ -Uncomplicated Side effects of treatment? @ -No Exacerbation, Progression, or Severe Exacerbation? @ -No Poses a threat to life or bodily function? How? (Chest pain, [place], [place], pneumonia, PE, COPD, DKA, ARF, appy, cholecystitis, CVA, Diverticulitis, Homicidal, Suicidal, threat to staff... and all critical care pts) @ -Low likelihood Disposition Clinical Impression: Chest pain Narrative: Released into police custody Disposition: HOME SELF-CARE Condition: Good Instructions (If sedation given, give patient instructions): Chest Pain (ED) Additional Instructions: Follow-up with PCP. Report back to ER with any new or worsening symptoms. Is patient prescribed a controlled substance at d/c from ED?: No Referrals: None,Stated [Primary Care Provider] - 1-2 days Time of Disposition: 23:50
[2023-01-04 22:30] LABS: Basophils % (A) 1 %; Eosinophils # (A) 0.1 k/uL (0-0.7); Eosinophils % (A) 1 %; HCT 44.7 % (39.0-53.0); HGB 14.9 gm/dL (13.0-17.5); Lymphocytes # (A) 1.5 k/uL (1.0-4.8); Lymphocytes % (A) 30 %; MCH 29.6 pg (25.0-35.0); MCHC 33.3 g/dL (31.0-37.0); Mean Platelet Volume 8.1; Monocytes # (A) 0.3 k/uL (0-1.0); Monocytes % (A) 6 %; Neutrophils % (A) 60 %; Platelet Count 227 k/uL (150-450); RBC 5.02 m/uL (4.30-5.90); RDW 12.7 % (11.5-15.5)
[2023-01-04 22:43] LABS: ALT 138 U/L (4-49); AST 144 U/L (17-59); African American GFR (CKD) >90 (>60 ml/min/1.73 sqM); Albumin 4.4 g/dL (3.5-5.0); Alkaline Phosphatase 74 U/L (38-126); Anion Gap 12 mmol/L; Blood Urea Nitrogen 9 mg/dL (9-20); Calcium 8.6 mg/dL (8.4-10.2); Carbon Dioxide 23 mmol/L (22-30); Chloride 113 mmol/L (98-107); Glucose 102 mg/dL (74-99); Non-African American GFR(CKD) >90 (>60 ml/min/1.73 sqM); Potassium 4.1 mmol/L (3.5-5.1); Sodium 148 mmol/L (137-145); Total Bilirubin 0.4 mg/dL (0.2-1.3); Total Protein 7.2 g/dL (6.3-8.2)
[2023-01-04 22:45] LABS: Prothrombin Time 10.5 sec (9.0-12.0)
[2023-01-04 22:50] LABS: Partial Thromboplastin Time 21.2 sec (22.0-30.0)
--- NOTE | 2023-01-04 22:53 | XR ---
EXAM: XR Chest, 2 Views CLINICAL HISTORY: ITS.REASON XR Reason: Chest Pain TECHNIQUE: Frontal and lateral views of the chest. COMPARISON: 09/05/2022 FINDINGS: Lungs: Unremarkable. No consolidation. Pleural space: Unremarkable. No pneumothorax. No pleural effusions. Heart: Unremarkable. No cardiomegaly. Mediastinum: Unremarkable. Bones/joints: No acute osseous abnormalities. IMPRESSION: Normal chest.
[2023-01-05 00:29] VITALS: BP 110/71; PULSE 84; TEMP 98.1
== END 2023-01-05 00:26 | disposition home or self-care (01) ==
LOC: EC 21:21
DX: R07.89 Other chest pain (principal); I25.2 Old myocardial infarction; F41.9 Anxiety disorder, unspecified; F12.90 Cannabis use, unspecified, uncomplicated; Z91.018 Allergy to other foods; Z79.899 Other long term (current) drug therapy; Z87.891 Personal history of nicotine dependence
CPT/HCPCS: 36415; 71046; 80053; 83735; 84484; 85025; 85610; 85730; 93005; 96360; 99285

== ENCOUNTER 2023-06-05 08:23 | Inpatient (IN) | payer MEDICAID, OTHER ==
--- NOTE | 2023-06-05 08:55 | ED ---
General Adult HPI - General Chief complaint: Psychiatric Symptoms Stated complaint: Mental Health Time Seen by Provider: 06/05/23 08:26 Source: patient, EMS, RN notes reviewed, old records reviewed Mode of arrival: EMS Limitations: no limitations - History of Present Illness Initial comments: 33-year-old male presents for evaluation of suicidal ideation. Patient does admit to alcohol consumption he states that yesterday he was not doing well at all and had asked his mother to remove the guns from the home. He denies a specific plan but has had suicidal ideation for some time and this is acutely worsening. Reports depression. - Related Data Home Medications Medication Instructions Recorded Confirmed No Known Home Medications 06/05/23 06/05/23 Allergies Allergy/AdvReac Type Severity Reaction Status Date / Time baires Allergy OLIVERIO/rash Verified 06/05/23 11:45 Review of Systems ROS Statement: Those systems with pertinent positive or pertinent negative responses have been documented in the HPI. ROS Other: All systems not noted in ROS Statement are negative. Past Medical History Past Medical History: GERD/Reflux, Myocardial Infarction ([place]) History of Any Multi-Drug Resistant Organisms: None Reported Past Surgical History: No Surgical Hx Reported, Orthopedic Surgery Additional Past Surgical History / Comment(s): 2 stents placed 08/17/22 Past Anesthesia/Blood Transfusion Reactions: No Reported Reaction Past Psychological History: Anxiety Smoking Status: Current some day smoker Past Alcohol Use History: Abuse, Daily Past Drug Use History: Marijuana - Past Family History Mother History Unknown: Yes Father History Unknown: Yes General Exam Limitations: no limitations General appearance: alert, in no apparent distress Head exam: Present: atraumatic, normocephalic Eye exam: Present: normal appearance, PERRL Neck exam: Present: normal inspection Respiratory exam: Present: normal lung sounds bilaterally. Absent: respiratory distress, wheezes Cardiovascular Exam: Present: regular rate, normal rhythm GI/Abdominal exam: Present: soft. Absent: distended, tenderness, guarding Neurological exam: Present: alert, oriented X3 Psychiatric exam: Present: depressed, flat affect, suicidal ideation Skin exam: Present: warm, dry, intact Course Vital Signs 06/05/23 08:27 Temperature 98.4 F Pulse Rate 111 H Respiratory 16 Rate Blood Pressure 132/87 O2 Sat by Pulse 97 Oximetry - Reevaluation(s) Reevaluation #1: 12/04/23 1030 Cleared for EPS Medical Decision Making - Medical Decision Making Was pt. sent in by a medical professional or institution (, PA, TRUCK SHOP SUPERVISOR, urgent care, hospital, or snf...) When possible be specific @ -No Did you speak to anyone other than the patient for history (EMS, parent, family, police, friend...)? What history was obtained from this source @ -No Did you review nursing and triage notes (agree or disagree)? Why? @ -I reviewed and agree with nursing and triage notes Were old charts reviewed (outside hosp., previous admission, EMS record, old EKG, old radiological studies, urgent care reports/EKG's, snf records)? Report findings @ -No old charts were reviewed Differential Diagnosis (chest pain, altered mental status, abdominal pain women, abdominal pain men, vaginal bleeding, weakness, fever, dyspnea, syncope, headache, dizziness, GI bleed, back pain, seizure, CVA, palpatations, mental health, musculoskeletal)? @ Differential Mental Health Depression, anxiety, bipolar, psychosis, schizophrenia, borderline personality, situational depression, adjustment disorder, behavioral disorder, brain tumor, malingering, substance abuse, encephalopathy, medication reaction, dementia, hypothyroidism, degenerative neurologic disorder, lupus.... This is not meant to be all-inclusive list EKG interpreted by me (3pts min.). @ -As above X-rays interpreted by me (1pt min.). @ -None done CT interpreted by me (1pt min.). @ -None done U/S interpreted by me (1pt. min.). @ -None done What testing was considered but not performed or refused? (CT, X-rays, U/S, labs)? Why? @ -None What meds were considered but not given or refused? Why? @ -None Did you discuss the management of the patient with other professionals (professionals i.e. , AUDIE, TRUCK SHOP SUPERVISOR, lab, RT, psych nurse, social work assistant, neon tube pumper, teacher, inspectors and regulatory officers, manager of case management)? Give summary @ -[Patient evaluated by EPS and will be admitted to this institution Was smoking cessation discussed for >3mins.? @ -No Was critical care preformed (if so, how long)? @ -No Were there social determinants of health that impacted care today? How? (Homelessness, low income, unemployed, alcoholism, drug addiction, transportation, low edu. Level, literacy, decrease access to med. care, [facility], rehab)? @ -No Was there de-escalation of care discussed even if they declined (Discuss DNR or withdrawal of care, Hospice)? DNR status @ -No What co-morbidities impacted this encounter? (DM, HTN, Smoking, COPD, CAD, Cancer, CVA, ARF, Chemo, Hep., AIDS, mental health diagnosis, sleep apnea, morbid obesity)? @Depression Was patient admitted / discharged? Hospital course, mention meds given and route, prescriptions, significant lab abnormalities, going to OR and other p ertinent info. @ -[33-year-old male with suicidal ideation, depression. Patient medically cleared and evaluated by EPS and will be admitted to this institution. Undiagnosed new problem with uncertain prognosis? @ -No Drug Therapy requiring intensive monitoring for toxicity (Heparin, Nitro, Insulin, Cardizem)? @ -No Were any procedures done? @ -No Diagnosis/symptom? @ -[Depression, suicidal ideation Acute, or Chronic, or Acute on Chronic? @Acute Uncomplicated (without systemic symptoms) or Complicated (systemic symptoms)? @ -Complicated Side effects of treatment? @ -No Exacerbation, Progression, or Severe Exacerbation? @ -No Poses a threat to life or bodily function? How? (Chest pain, [place], [place], pneumonia, PE, COPD, DKA, ARF, appy, cholecystitis, CVA, Diverticulitis, Homicidal, Suicidal, threat to staff... and all critical care pts) @ -Yes, self-harm Disposition Clinical Impression: Depression, Suicidal ideation Disposition: ADMITTED IP TO THIS [facility] Condition: Stable Is patient prescribed a controlled substance at d/c from ED?: No Referrals: None,Stated [Primary Care Provider] - 1-2 days Time of Disposition: 14:57
[2023-06-05 16:17] LABS: Appearance,Urine Cloudy (Clear); Color,Urine Light Yellow; Glucose,Urine (UA) Negative (Negative); Mucus,Urine Occasional /hpf; PH, Urine 5.5 (5.0-8.0); Protein,Urine 1+ (Negative); WBC,Urine 1 /hpf (0-5)
[2023-06-05 16:18] LABS: Bilirubin,Urine Negative (Negative); Blood,Urine Negative (Negative); Ketones,Urine Negative (Negative); Leukocyte Esterase,Urine Negative (Negative); Nitrite,Urine Negative (Negative); Urobilinogen,Urine <2.0 mg/dL (<2.0)
[2023-06-05 16:20] LABS: Amphetamine Screen,Urine Not Detected (NotDetected); Barbiturate Screen,Urine Not Detected (NotDetected); Benzodiazepines Screen,Urine Not Detected (NotDetected); Cocaine Screen,Urine Not Detected (NotDetected); Methadone Screen, Urine Not Detected (NotDetected); Opiate Screen,Urine Not Detected (NotDetected); Oxycodone Screen, Urine Not Detected (NotDetected); Phencyclidine Screen,Urine Not Detected (NotDetected); Tricyclic Antidepressant,Urine Not Detected (NotDetected); Urn Cannabinoid Scrn Detected (NotDetected)
[2023-06-05] MEDS ORDERED: LORazepam 1 MG TAB PO STA (18:53)
[2023-06-05] MEDS ORDERED: MAGNESIUM HYDROXIDE 2,400 MG/30 ML CUP PO PRN (19:32)
[2023-06-05] MEDS ORDERED: MAG HYDROX/AL HYDROX/SIMETH 30 ML CUP PO PRN (19:32)
[2023-06-05] MEDS ORDERED: IBUPROFEN 600 MG TAB PO PRN (19:32)
[2023-06-05] MEDS ORDERED: LORazepam 2 MG/ML INJ IM PRN (19:32)
[2023-06-05] MEDS ORDERED: haloperidoL 5 MG TAB PO PRN (19:32)
[2023-06-05] MEDS ORDERED: HALOPERIDOL LACTATE 5 MG/ML 1 ML VIAL IM PRN (19:32)
[2023-06-05] MEDS: traZODone HCL 50 MG TAB PO PRN (22:17)
--- NOTE | 2023-06-06 03:28 | P.CONS ---
History of Present Illness - Reason for Consult Consult date: 06/05/23 - History of Present Illness The patient is a 33-year-old male with a PMH of alcohol abuse (reports sober for over a year) who presented to the emergency room with complaints of depression and suicidal ideation. The patient was admitted to mental health unit where he was seen and evaluated. The patient denies any prior medical history and states that he feels well aside from his ongoing depression. Denied any physical complaints including chest discomfort, shortness of fever, chills, cough, nausea, vomiting, abdominal pain, diarrhea. Denies ongoing tobacco, alcohol, or substance use. Review of systems: Pertinent positives and negatives as discussed in HPI, a complete review of systems was performed and all other systems are negative. Physical examination: General: non toxic, no distress, appears at stated age, normal weight Derm: no unusual rashes/lesions, no unusual ecchymoses, warm, dry Head: atraumatic, normocephalic, symmetric Eyes: EOMI, no lid lag, anicteric sclera ENT: Nose and ears atraumatic, no thrush, no pharyngeal erythema Neck: trachea midline, supple Mouth: no lip lesion, mucus membranes moist Cardiovascular: S1S2 reg, no murmur, no edema Lungs: CTA bilateral, no rhonchi, no rales , no accessory muscle use Abdominal: soft, nontender to palpation, no guarding Ext: no gross muscle atrophy, no contractures, Neuro: No gross focal neuro deficits noted Psych: Alert, oriented, appropriate affect Assessment: Marijuana abuse Depression and suicidal ideation Imaging: None performed Data Review: Laboratory evaluation reviewed with urine tox positive for marijuana Plan: Advised on importance of cessation Defer management of depression and suicidal ideation to the primary psychiatry service Thank you for allowing us to participate in the care of this patient. We will follow peripherally. Do not hesitate to contact us with questions. Someone can be reached from the [facility] hospitalist group at all hours of the day at [phone]. Past Medical History Past Medical History: GERD/Reflux, Myocardial Infarction ([place]) Additional Past Medical History / Comment(s): pt has hx of N-STEMI in August 2022 and August 2022. Last Myocardial Infarction Date:: 09/05/22 History of Any Multi-Drug Resistant Organisms: None Reported Past Surgical History: Heart Catheterization, Heart Catheterization With Stent Additional Past Surgical History / Comment(s): pt had 2 stents placed 08/17/22 and cardiac cath 09/05/22 Past Anesthesia/Blood Transfusion Reactions: No Reported Reaction Date of Last Stent Placement:: 08/17/22 Smoking Status: Former smoker, Vaper - Past Family History Mother History Unknown: Yes Father History Unknown: Yes Medications and Allergies Home Medications Medication Instructions Recorded Confirmed Type No Known Home Medications 06/05/23 06/05/23 History Allergies Allergy/AdvReac Type Severity Reaction Status Date / Time baires Allergy OLIVERIO/rash Verified 06/05/23 22:28 Physical Exam Vitals: Vital Signs Temp Pulse Pulse Resp BP BP Pulse Ox 06/05/23 21:40 97.9 F 92 18 139/89 97 06/05/23 19:40 97.9 F 92 18 139/89 97 06/05/23 08:27 98.4 F 111 H 16 132/87 97 Intake and Output 06/05/23 06/05/23 06/06/23 14:59 22:59 06:59 Other: Weight 81.647 kg 83.6 kg Results Labs: Abnormal Lab Results - Last 24 Hours (Table) 06/05/23 Range/Units 15:50 Urine Protein 1+ H (Negative) Urine Mucus Occasional H (None) /hpf U Marijuana (THC) Screen Detected H (NotDetected)
[2023-06-06] MEDS: NICOTINE 14MG/24HR PATCH TRANSDERM SCH (08:33)
[2023-06-06] MEDS: LORazepam 1 MG TAB PO PRN ×2 (08:36→18:22)
[2023-06-06 12:08] LABS: Basophils % (A) 0 %; Eosinophils # (A) 0.1 k/uL (0-0.7); Eosinophils % (A) 1 %; HCT 46.4 % (39.0-53.0); HGB 15.8 gm/dL (13.0-17.5); Lymphocytes # (A) 2.1 k/uL (1.0-4.8); Lymphocytes % (A) 21 %; MCH 29.7 pg (25.0-35.0); MCV 87.1 fL (80.0-100.0); Mean Platelet Volume 7.9; Monocytes # (A) 0.4 k/uL (0-1.0); Monocytes % (A) 4 %; Neutrophils # (A) 7.2 k/uL (1.3-7.7); Neutrophils % (A) 72 %; Platelet Count 225 k/uL (150-450); RBC 5.33 m/uL (4.30-5.90); RDW 12.9 % (11.5-15.5)
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
[2023-06-06 12:22] LABS: ALT 29 U/L (4-49); African American GFR (CKD) >90 (>60 ml/min/1.73 sqM); Albumin 4.8 g/dL (3.5-5.0); Anion Gap 12 mmol/L; Blood Urea Nitrogen 14 mg/dL (9-20); Calcium 9.9 mg/dL (8.4-10.2); Carbon Dioxide 25 mmol/L (22-30); Chloride 102 mmol/L (98-107); Glucose 96 mg/dL (74-99); Non-African American GFR(CKD) >90 (>60 ml/min/1.73 sqM); Sodium 139 mmol/L (137-145); Total Bilirubin 1.1 mg/dL (0.2-1.3)
[2023-06-06 12:24] LABS: Potassium 4.7 mmol/L (3.5-5.1)
[2023-06-06 12:25] LABS: AST 37 U/L (17-59); Alkaline Phosphatase 66 U/L (38-126)
[2023-06-06] MEDS: ARIPiprazole 5 MG TAB PO SCH (12:46)
[2023-06-06] MEDS: ESCITALOPRAM 5 MG TAB PO SCH (12:46)
[2023-06-06 18:32] LABS: Chol/HDL Ratio 4.64 Ratio
[2023-06-06] MEDS: traZODone HCL 50 MG TAB PO PRN (22:13)
[2023-06-07] MEDS: ARIPiprazole 5 MG TAB PO SCH (09:34)
[2023-06-07] MEDS: ESCITALOPRAM 5 MG TAB PO SCH (09:35)
[2023-06-07] MEDS: NICOTINE 14MG/24HR PATCH TRANSDERM SCH (09:35)
--- NOTE | 2023-06-07 11:29 | P.PN ---
Progress Note - Text Progress Note Date: 06/07/23 Interval History: Patient was seen in group, and was directable and agreeable to speak with scenario writer in the office. Patient states he feels no better today, and has a sense of worry. He states he feels more anxious today. Patient states he feels restless and pacing aswell. Patient claims he was up and down allot last night, and did not sleep well. did appear to have improvement in hygiene and grooming. states that he is talking with his girlfriend over the phone which is helping. States if he was out in the world, he would not trust himself. Appetite is good. At this time patient endorses suicidal ideations, without a plan, denies homical ideations, intent or plan. Patient denies any auditory, visual hallucinations and denies any paranoia or delusions. Patient denies any side effects from the medications and has been compliant with meds. Mental status: General Appearance: Patient appears to be stated age is alert, directable, and attempts to cooperate. several tattoos. Patient appears to have fair hygiene and grooming. Patient is average build, ortiz, tattoos. Dressed in street clothes. Behavior: Patient is seated without any agitated behavior. Cooperative. poor eye contact mildly improving Speech: Patient's speech is fluent and nonpressured. Mood/Affect: Patient reports their mood is "not good", affect is congruent and constricted. mildly improving Suicidality/Homicidality: Patient denies having any homicidal ideation intent or plan. admits to suicidal ideations, no intent or plan Perceptions: Patient denies any visual hallucinations and denies any auditory hallucinations Though content/process: There is no evidence of any delusional thought content and thought process is concrete. Memory and concentration: AOX3, grossly intact for the purposes of this session. Judgment and insight: poor, improving mildly IMPRESSIONS: Bipolar disorder, current episode, depressed cannabis use disorder mild nicotine dependance alcohol abuse PLAN: -Patient is admitted under voluntary status to [facility] for stabilization of psychiatric symptoms and safety. Patient has signed adult voluntary form and [medication consent and is placed in patient's chart. -Medications : discontinue Abilify due to likely increase in anxiety and akithesia, increase [id number] mg qd for depression/mood, Increase Trazadone 100mg qhs scheduled for sleep/insomnia, add [place] 150mg bid for mood stabilization/SI -Ativan and Haldol PRN for agitation/aggression -CIWA scale q6 hours. -NRT - nicotine patch -SW on board for discharge planning. Encourage patient to participate in groups to work on coping skills.
[2023-06-07] MEDS: LITHIUM CARBONATE 150 MG CAP PO SCH ×2 (11:31→22:15)
[2023-06-07] MEDS: traZODone HCL 100 MG TAB PO SCH (22:15)
[2023-06-08] MEDS: ESCITALOPRAM 10 MG TAB PO SCH (09:05)
[2023-06-08] MEDS: LITHIUM CARBONATE 150 MG CAP PO SCH ×2 (09:05→20:31)
[2023-06-08] MEDS: NICOTINE 14MG/24HR PATCH TRANSDERM SCH (09:05)
--- NOTE | 2023-06-08 09:31 | P.PN ---
Progress Note - Text Progress Note Date: 06/08/23 Interval History: Patient was seen in group, and was directable and agreeable to speak with senior medical writer in the office. Patient states he feels a little better today, and had a nice visit with his s/o last night, and she was very supportive. States he did not sleep well last night due to room mate snoring, and nursing staff changed him rooms around 4am. Patient is going to groups. Patient does appear to have mild improvement in hygiene and grooming. Patient states his mood and depression does not seem to be getting any better, however, he claims he does not have SI today, but is scared of getting out and going to the 'same dark place'. Claims that he is using coping skills to deal with his anxiety attacks.Patient states he has racing thoughts. Appetite is good. At this time patient does not endorse suicidal ideations, and denies homical ideations, intent or plan. Patient denies any auditory, visual hallucinations and denies any paranoia or delusions. Patient denies any side effects from the medications and has been compliant with meds. Mental status: General Appearance: Patient appears to be stated age is alert, directable, and attempts to cooperate. several tattoos. Patient appears to have fair hygiene and grooming. Patient is average build, ortiz, tattoos. Dressed in street clothes. Behavior: Patient is seated without any agitated behavior. Cooperative. poor eye contact mildly improving Speech: Patient's speech is fluent and nonpressured. Mood/Affect: Patient reports their mood is "not good", affect is congruent and constricted. mildly improving Suicidality/Homicidality: Patient denies having any homicidal ideation intent or plan. denies any suicidal ideations, no intent or plan Perceptions: Patient denies any visual hallucinations and denies any auditory hallucinations Though content/process: There is no evidence of any delusional thought content and thought process is concrete. Memory and concentration: AOX3, grossly intact for the purposes of this session. Judgment and insight: poor, improving mildly IMPRESSIONS: Bipolar disorder, current episode, depressed cannabis use disorder mild nicotine dependance alcohol abuse PLAN: -Patient is admitted under voluntary status to [facility] for stabilization of psychiatric symptoms and safety. Patient has signed adult voluntary form and [medication consent and is placed in patient's chart. -Medications : [id number] mg qd for depression/mood, Trazadone 100mg qhs scheduled for sleep/insomnia, [place] 150mg bid for mood stabilization/SI -Ativan and Haldol PRN for agitation/aggression -CIWA scale q6 hours. -NRT - nicotine patch -SW on board for discharge planning. Encourage patient to participate in groups to work on coping skills. possible discharge next week if patient improves psychiatrically.
[2023-06-08] MEDS: traZODone HCL 100 MG TAB PO SCH (20:31)
[2023-06-08] MEDS: LORazepam 1 MG TAB PO PRN (20:32)
[2023-06-09] MEDS: NICOTINE 14MG/24HR PATCH TRANSDERM SCH (09:16)
[2023-06-09] MEDS: LITHIUM CARBONATE 150 MG CAP PO SCH ×2 (09:17→20:33)
[2023-06-09] MEDS: ESCITALOPRAM 10 MG TAB PO SCH (09:17)
[2023-06-09] MEDS: ACETAMINOPHEN TAB 325 MG TAB PO PRN (09:18)
[2023-06-09] MEDS: LORazepam 1 MG TAB PO PRN (09:18)
--- NOTE | 2023-06-09 11:00 | P.PN ---
Progress Note - Text Progress Note Date: 06/09/23 Interval History: Patient was seen in group, and was directable and agreeable to speak with manual writer in the office. Patient states that he woke up this morning shaking and in a panic, like he was 'late for something'. States he slept ok last night, and that he was up and down several times. Claims his mood is getting better, and that he is feeling more comfortable, and less anxious. Patient is going to groups. Patient does appear to have improvement in hygiene and grooming. Patient states his depression is mildly subsiding however continues to endorse hopelessness. Claims that he is trying to use coping skills to deal with his anxiety attacks. Appetite is good. Spoke to patient about the need to check his [place] level Monday. At this time patient does not endorse suicidal ideations, and denies homical ideations, intent or plan. Patient denies any auditory, visual hallucinations and denies any paranoia or delusions. Patient denies any side effects from the medications and has been compliant with meds. Mental status: General Appearance: Patient appears to be stated age is alert, directable, and attempts to cooperate. several tattoos. Patient appears to have fair hygiene and grooming. Patient is average build, ortiz, tattoos. Dressed in street clothes. Behavior: Patient is seated without any agitated behavior. Cooperative. poor eye contact mildly improving Speech: Patient's speech is fluent and nonpressured. Mood/Affect: Patient reports their mood is "the same", affect is congruent and constricted. mildly improving Suicidality/Homicidality: Patient denies having any homicidal ideation intent or plan. denies any suicidal ideations, no intent or plan Perceptions: Patient denies any visual hallucinations and denies any auditory hallucinations Though content/process: There is no evidence of any delusional thought content and thought process is concrete. Memory and concentration: AOX3, grossly intact for the purposes of this session. Judgment and insight: poor, improving mildly IMPRESSIONS: Bipolar disorder, current episode, depressed cannabis use disorder mild nicotine dependance alcohol abuse PLAN: -Patient is admitted under voluntary status to [facility] for stabilization of psychiatric symptoms and safety. Patient has signed adult voluntary form and [medication consent and is placed in patient's chart. -Medications : increase Lexapro 15mg qd for depression/mood, increase Trazadone 150mg qhs scheduled for sleep/insomnia, [place] 150mg bid for mood stabilization/SI. Check lithium level Monday morning. -Ativan and Haldol PRN for agitation/aggression -d/c CIWA today -NRT - nicotine patch -SW on board for discharge planning. Encourage patient to participate in groups to work on coping skills. possible discharge monday/monday if patient improves psychiatrically.
[2023-06-09] MEDS ORDERED: traZODone HCL 50 MG TAB PO SCH (21:00)
[2023-06-10] MEDS: LORazepam 1 MG TAB PO PRN ×3 (03:00→20:31)
[2023-06-10] MEDS: ESCITALOPRAM 10 MG TAB PO SCH (08:21)
[2023-06-10] MEDS: LITHIUM CARBONATE 150 MG CAP PO SCH ×2 (08:21→20:29)
[2023-06-10] MEDS ORDERED: NICOTINE GUM (POLACRILEX) 2 MG GUM BUCCAL PRN (08:23)
--- NOTE | 2023-06-10 13:43 | P.PN ---
Progress Note - Text Progress Note Date: 06/10/23 Interval History: The patient was seen today as coverage for Dr. Platt. Their chart was reviewed, and the case was discussed with the nursing staff. The patient reports poor sleep that he can't fall asleep before 4 am and he doesn't feel Trazodone helps with sleeping. The patient reports fair appetite. The patient has been participating in groups and other unit activities. The patient has been taking their psychiatric medications and denies side effects. The patient reports feeling more stable mentally and denies suicidal or homicidal ideation. There are no reports of delusions, manic symptoms, or hallucinations. The patient is scheduled for [place] level tomorrow. The patient reports increased anxiety yesterday which caused him panic attacks and interfered with his sleep. Mental Status Examination: Appearance: Appears stated age, adequately groomed, average body built, and no specific features. Gait/ posture: steady gait, normal arm swinging, no abnormal movements. Attitude and Behavior: Engaged, cooperative, maintained eye contact during course of interview. Motor Activity: normal psychomotor activity. Speech: Normal rate, rhythm, articulation, and prosody. None pressured. Mood: " anxious Affect: stable, reactive, congruent to mood, appropriate to context and situation. Thought form: Goal directed, linear, and relevant, not incoherent and no clang association. Thought content: Logical, non-delusional, denies suicidal, homicidal thoughts, intentions, or plans. Perception: Denies any auditory/ visual or tactile hallucinations. Attention: No impairment. Orientation: Oriented to time, place, person, and situation. Insight & Judgment: fair Impulse control: fair IMPRESSIONS: Bipolar disorder, current episode, depressed cannabis use disorder mild nicotine dependance alcohol abuse Treatment plan: Continue inpatient psychiatric hospitalization. Patient has signed adult voluntary form and [medication consent and is placed in patient's chart. Implement the following precautions as recommended by the admitting psychiatrist: [] Consult the medical team immediately if any medical concerns arise. Educate the patient on the benefits of participating in groups and other unit activities and encourage active participation. Lab work ordered: [place] level ordered tomorrow ordered by Dr. Platt Medications: Lexapro 15 mg qd for depression/mood. Discontinue Trazodone- not helping with insomnia Start Seroquel 50 mg PO HS for augmenting [place] with mood stabilization and to help with insomnia Continue [place] 150mg bid for mood stabilization/SI. -Ativan and Haldol PRN for agitation/aggression -NRT - nicotine patch Discharge planning: is ongoing
[2023-06-10] MEDS: QUEtiapine 100 MG TAB PO SCH (20:29)
[2023-06-10] MEDS: ACETAMINOPHEN TAB 325 MG TAB PO PRN (20:31)
[2023-06-11] MEDS: LITHIUM CARBONATE 150 MG CAP PO SCH ×2 (07:44→20:23)
[2023-06-11] MEDS: ESCITALOPRAM 10 MG TAB PO SCH (07:44)
[2023-06-11] MEDS: ACETAMINOPHEN TAB 325 MG TAB PO PRN (07:45)
[2023-06-11] MEDS: LORazepam 1 MG TAB PO PRN ×2 (07:46→19:25)
[2023-06-11 07:51] VITALS: RESP 20; TEMP 97.1
[2023-06-11] MEDS: NICOTINE 21MG/24HR PATCH TRANSDERM SCH (09:06)
--- NOTE | 2023-06-11 15:09 | P.PN ---
Progress Note - Text Progress Note Date: 06/11/23 Interval History: The patient was seen today as coverage for Dr. Platt. Their chart was reviewed, and the case was discussed with the nursing staff. The patient reports feeling stable emotionally and denies symptoms of depression, hopelessness, or suicidal ideation. The patient feels Seroquel held with managing his mood and had better sleep last night. Patient denies any hallucinations, paranoid ideation, delusions, or manic symptoms. [place] level completed today which came back 0.2. The patient might need further adjustment of lithium dose based on his primary psychiatrist evaluation. Patient reports fair appetite. He continues to take his psych medications and denies side effe cts. The patient has been cooperative with the treatment team and appropriately interacting with other peers. Mental Status Examination: Appearance: Appears stated age, adequately groomed, average body built, and no specific features. Gait/ posture: steady gait, normal arm swinging, no abnormal movements. Attitude and Behavior: Engaged, cooperative, maintained eye contact during cours e of interview. Motor Activity: normal psychomotor activity. Speech: Normal rate, rhythm, articulation, and prosody. None pressured. Mood: " fine Affect: stable, reactive, congruent to mood, appropriate to context and situation. Thought form: Goal directed, linear, and relevant, not incoherent and no clang association. Thought content: Logical, non-delusional, denies suicidal, homicidal thoughts, intentions, or plans. Perception: Denies any auditory/ visual or tactile hallucinations. Attention: No impairment. Orientation: Oriented to time, place, person, and situation. Insight & Judgment: fair Impulse control: fair IMPRESSIONS: Bipolar disorder, current episode, depressed cannabis use disorder mild nicotine dependance alcohol abuse Treatment plan: Continue inpatient psychiatric hospitalization. Patient has signed adult voluntary form and [medication consent and is placed in patient's chart. Implement the following precautions as recommended by the admitting psychiatrist: [] Consult the medical team immediately if any medical concerns arise. Educate the patient on the benefits of participating in groups and other unit activities and encourage active participation. Lab work ordered: [place] level completed 06/11/23- Results 0.2 Medications: Lexapro 15 mg qd for depression/mood. Continue Seroquel 100 mg PO HS for augmenting [place] with mood stabilization and to help with insomnia Continue [place] 150mg bid for mood stabilization/SI. -Ativan and Haldol PRN for agitation/aggression -NRT - nicotine patch Discharge planning: is ongoing
[2023-06-11] MEDS: QUEtiapine 100 MG TAB PO SCH (20:23)
[2023-06-12] MEDS: LORazepam 1 MG TAB PO PRN (00:38)
[2023-06-12 06:53] VITALS: BP 138/90; PULSE 101
[2023-06-12] MEDS: ESCITALOPRAM 10 MG TAB PO SCH (08:41)
[2023-06-12] MEDS: NICOTINE 21MG/24HR PATCH TRANSDERM SCH (08:42)
[2023-06-12] MEDS: LITHIUM CARBONATE 150 MG CAP PO SCH (08:42)
[2023-06-12] MEDS ORDERED: ESCITALOPRAM 5 MG TAB PO STA (10:10)
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
[2023-06-13] MEDS ORDERED: ESCITALOPRAM 20 MG TAB PO SCH (09:00)
== END 2023-06-12 13:33 | disposition home or self-care (01) | DRG 753 ==
LOC: EC 08:23 → 3MHU 19:20
PROVIDERS: ADMIT Psychiatry & Neurology Psychiatry; ATTEND Psychiatry & Neurology Psychiatry
DX: F31.30 Bipolar disorder, current episode depressed, mild or moderate severity, unspecified (principal); R45.850 Homicidal ideations; R45.851 Suicidal ideations; F10.10 Alcohol abuse, uncomplicated; F12.10 Cannabis abuse, uncomplicated; F17.210 Nicotine dependence, cigarettes, uncomplicated; G47.00 Insomnia, unspecified; Z20.822 Contact with and (suspected) exposure to COVID-19; I25.2 Old myocardial infarction; Z63.5 Disruption of family by separation and divorce; Z91.419 Personal history of unspecified adult abuse; Z81.8 Family history of other mental and behavioral disorders; Z81.3 Family history of other psychoactive substance abuse and dependence; Z28.310 Unvaccinated for COVID-19; Z91.018 Allergy to other foods
CPT/HCPCS: 80053; 80061; 80178; 80306; 81001; 82075; 83036; 83721; 84443; 85025; 87635; 99285

== ENCOUNTER 2024-05-28 09:21 | Emergency (ER) | payer OTHER ==
--- NOTE | 2024-05-28 10:04 | ED ---
Skin/Abscess/FB HPI - General Chief complaint: Skin/Abscess/Foreign Body Stated complaint: R hand rash/poss mersa Time Seen by Provider: 05/28/24 09:38 Source: patient, RN notes reviewed Mode of arrival: ambulatory Limitations: no limitations - History of Present Illness Initial comments: 34-year-old male with history of previous MRSA skin infection presenting to the emergency department chief complaint of a rash to his right hand that has been present for approximate the past 3 months. Patient states that he was incarcerated about 4 months ago and was informed that he had MRSA infection of his ear with certain antibiotics. Patient states that symptoms of his hand are similar as when he send infection his ear in the past. He denies fevers, chill s, nausea, vomiting. Denies recent antibiotic use. He denies pain with range of motion of the hand, paresthesias. Denies previous surgeries of the hand. - Related Data Previous Rx's Medication Instructions Recorded Escitalopram [Lexapro] 20 mg PO DAILY 30 Days #30 tab 06/12/23 Angustura Carbonate 150 mg PO BID 30 Days #60 cap 06/12/23 Nicotine 21Mg/24Hr Patch [Habitrol] 1 patch TRANSDERM DAILY 14 Days 06/12/23 #14 patch QUEtiapine [SEROquel] 100 mg PO HS 30 Days #30 tab 06/12/23 Sulfamethox-Tmp 800-160Mg [Bactrim 1 each PO Q12HR #20 tab 05/28/24 Ds] Allergies Allergy/AdvReac Type Severity Reaction Status Date / Time baires Allergy OLIVERIO/rash Verified 05/28/24 09:32 Review of Systems ROS Statement: Those systems with pertinent positive or pertinent negative responses have been documented in the HPI. ROS Other: All systems not noted in ROS Statement are negative. Past Medical History Past Medical History: GERD/Reflux, Myocardial Infarction (ID) Additional Past Medical History / Comment(s): pt has hx of N-STEMI in August 2022 and August 2022. Last Myocardial Infarction Date:: 09/05/22 History of Any Multi-Drug Resistant Organisms: None Reported Past Surgical History: Heart Catheterization, Heart Catheterization With Stent Additional Past Surgical History / Comment(s): pt had 2 stents placed 08/17/22 and cardiac cath 09/05/22 Past Anesthesia/Blood Transfusion Reactions: No Reported Reaction Date of Last Stent Placement:: 08/17/22 Past Psychological History: Anxiety, Depression Smoking Status: Former smoker, Vaper Past Alcohol Use History: None Reported Past Drug Use History: None Reported - Past Family History Mother History Unknown: Yes Father History Unknown: Yes General Exam Limitations: no limitations General appearance: alert, in no apparent distress ENT exam: Present: normal exam, mucous membranes moist Neck exam: Present: normal inspection. Absent: tenderness, meningismus, lymphadenopathy Respiratory exam: Present: normal lung sounds bilaterally. Absent: respiratory distress, wheezes, rales, rhonchi, stridor Cardiovascular Exam: Present: regular rate, normal rhythm, normal heart sounds. Absent: systolic murmur, diastolic murmur, rubs, gallop, clicks GI/Abdominal exam: Present: soft, normal bowel sounds. Absent: distended, tenderness, guarding, rebound, rigid Extremities exam: Present: normal inspection, full ROM, normal capillary refill. Absent: tenderness, pedal edema, joint swelling, calf tenderness Back exam: Present: normal inspection Expanded Type of lesion: Present: other Distribution of rash: RUE (hand between 4th and 5th digits) Description of rash: Present: erythematous, crusting Course Vital Signs 05/28/24 05/28/24 09:30 10:30 Temperature 98.3 F 98.1 F Pulse Rate 100 97 Respiratory 20 18 Rate Blood Pressure 149/90 138/87 O2 Sat by Pulse 97 98 Oximetry Medical Decision Making - Medical Decision Making Was pt. sent in by a medical professional or institution (, PA, COLORS CUSTODIAN, urgent care, hospital, or residential...) When possible be specific @ -No Did you speak to anyone other than the patient for history (EMS, parent, family, police, friend...)? What history was obtained from this source @ -No Did you review nursing and triage notes (agree or disagree)? Why? @ -I reviewed and agree with nursing and triage notes Were old charts reviewed (outside hosp., previous admission, EMS record, old EKG, old radiological studies, urgent care reports/EKG's, residential records)? Report findings @ -No old charts were reviewed Differential Diagnosis (chest pain, altered mental status, abdominal pain women, abdominal pain men, vaginal bleeding, weakness, fever, dyspnea, syncope, headache, dizziness, GI bleed, back pain, seizure, CVA, palpatations, mental health, musculoskeletal)? @ -Cellulitis, impetigo, candidiasis, this list is not all inclusive EKG interpreted by me (3pts min.). @ -None X-rays interpreted by me (1pt min.). @ -None done CT interpreted by me (1pt min.). @ -None done U/S interpreted by me (1pt. min.). @ -None done What testing was considered but not performed or refused? (CT, X-rays, U/S, labs)? Why? @ -None What meds were considered but not given or refused? Why? @ -None Did you discuss the management of the patient with other professionals (professionals i.e. , PA, COLORS CUSTODIAN, lab, RT, psych nurse, social economist, unit nurse, teacher, marine safety officer, clinical case manager)? Give summary @ -No Was smoking cessation discussed for >3mins.? @ -No Was critical care preformed (if so, how long)? @ -No Were there social determinants of health that impacted care today? How? (Homelessness, low income, unemployed, alcoholism, drug addiction, transportation, low edu. Level, literacy, decrease access to med. care, residential, rehab)? @ -No Was there de-escalation of care discussed even if they declined (Discuss DNR or withdrawal of care, Hospice)? DNR status @ -No What co-morbidities impacted this encounter? (DM, HTN, Smoking, COPD, CAD, Cancer, CVA, ARF, Chemo, Hep., AIDS, mental health diagnosis, sleep apnea, morbid obesity)? @ -None Was patient admitted / discharged? Hospital course, mention meds given and route, prescriptions, significant lab abnormalities, going to OR and other pertinent info. @ -Discharge. 34-year-old male with rash. On evaluation patient noted to have erythematous and mildly macerated rash between the fourth and fifth digits of the right hand. Patient has full range of motion of the hand with no neurovascular deficits. Radial pulse 2+. States that pain is mildly exacerbated with palpation of the rash. There is no evidence of flexor tenosynovitis. Examination concern for infectious process most likely cellulitis. Patient does have history of MRSA infection. Provided with initial dose of Rocephin IM and sent a prescription for Bactrim to take. Recommend they continue to keep area clean and dry and follow-up with provider in the next 1 to 2 days for skin recheck. Discussed with Dr. Ramos Undiagnosed new problem with uncertain prognosis? @ -No Drug Therapy requiring intensive monitoring for toxicity (Heparin, Nitro, Insulin, Cardizem)? @ -No Were any procedures done? @ -No Diagnosis/symptom? @ -MRSA infection, cellulitis Acute, or Chronic, or Acute on Chronic? @ -acute Uncomplicated (without systemic symptoms) or Complicated (systemic symptoms)? @ -uncomplicated Side effects of treatment? @ -No Exacerbation, Progression, or Severe Exacerbation? @ -No Poses a threat to life or bodily function? How? (Chest pain, [place], ID, pneumonia, PE, COPD, DKA, ARF, appy, cholecystitis, CVA, Diverticulitis, Homicidal, Suicidal, threat to staff... and all critical care pts) @ -No Disposition Clinical Impression: Rash, History of MRSA infection Disposition: HOME SELF-CARE Condition: Good Instructions (If sedation given, give patient instructions): MRSA (Methicillin- Resistant Staphylococcus Aureus) (ED) Additional Instructions: Please return to the Emergency Department if symptoms worsen or any other concerns. Complete full course of oral antibiotics as prescribed. Continue to keep area clean and dry. Is frequently follow-up with medical provider in the next 7 to 10 days for recheck. Prescriptions: Sulfamethox-Tmp 800-160Mg [Bactrim Ds] 1 each PO Q12HR #20 tab Is patient prescribed a controlled substance at d/c from ED?: No Referrals: None,Stated [Primary Care Provider] - 1-2 days Time of Disposition: 10:11
[2024-05-28] MEDS: cefTRIAXone 1,000 MG VIAL (IM USE) IM STA (10:13)
[2024-05-28 10:32] VITALS: BP 138/87; PULSE 97; RESP 18; TEMP 98.1
== END 2024-05-28 10:35 | disposition home or self-care (01) ==
LOC: EC 09:21
DX: R21 Rash and other nonspecific skin eruption (principal); Z86.14 Personal history of Methicillin resistant Staphylococcus aureus infection; F17.290 Nicotine dependence, other tobacco product, uncomplicated; Z91.018 Allergy to other foods
CPT/HCPCS: 99282; 96372; J0696